=== PATIENT | female | born 1950 | race Caucasian/White ===

== ENCOUNTER 2024-07-30 10:23 | Inpatient (IN) | payer MEDICARE, SELFPAY ==
[2024-07-30] VITALS (21 sets, daily range): BP systolic 88–143; BP diastolic 39–89; PULSE 106–138; RESP 12–24; TEMP 35.8–36.8; O2SAT 91–100; BMI 24.8; BMI 24.5
--- NOTE | 2024-07-30 10:55 | ECG_ITS ---
APPROVED REPORT Exam: Resting ECG HR:125 bpm ECG Measurements Heart Rate 125 AXES MO 138 P 65 QRSd 74 QRS 19 QT 314 T 4 QTc 388 Conclusion SINUS TACHYCARDIA ABNORMAL RHYTHM ECG Electronically signed by : FIORDALIZA GILL, 07/30/2024 16:29:54
[2024-07-30 10:58] LABS: Basophils % 0.4 % (0.1-2.0); Eosinophils % 0.3 % (0.1-12.0); Hematocrit 26.3 % (37.0-47.0); Hemoglobin 8.5 g/dL (12.2-16.2); Lymphocytes # 1.2 K/mm3 (0.7-4.5); Lymphocytes % 12.6 % (10-50); Mean Corpuscular HGB Conc 32.3 g/dL (31.8-35.4); Mean Corpuscular Hemoglobin 33.5 pg (27.0-31.2); Mean Corpuscular Volume 103.5 fl (81-99); Mean Platelet Volume 8.1 fl (7.4-10.4); Monocytes # 0.3 K/mm3 (0.1-1.0); Monocytes % 3.3 % (1.7-9.3); Neutrophils # 8.2 K/mm3 (1.8-7.8); Neutrophils % 83.4 % (37.0-80.0); Platelet Count 379 K/mm3 (142-424); Red Blood Count 2.54 M/mm3 (4.20-5.40); Red Cell Distribution Width 14.6 % (11.5-17.5); White Blood Count 9.8 K/mm3 (4.8-10.8)
[2024-07-30] MEDS: BELLADONNA ALKALOIDS 60 ML ML PO ×2 (10:59→18:05)
[2024-07-30 11:04] LABS: Albumin Level 3.4 g/dl (3.5-5.0); Chloride 109 mmol/L (98-107); Potassium 4.3 mmoL/L (3.5-5.1); Sodium 140 mmol/L (136-145)
[2024-07-30 11:07] LABS: Alanine Aminotransferase 39 U/L (12-78); Albumin/Globulin Ratio 1.3 (1.1-1.8); Alkaline Phosphatase 39 U/L (38-126); Anion Gap 13.3 mEq/L (5-15); Aspartate Amino Transferase 43 U/L (14-36); Bilirubin,Total 0.8 mg/dl (0.2-1.3); Carbon Dioxide 22 mmol/L (22.0-30.0); Globulin 2.6 g/dL (1.3-3.2); Lipase 80 U/L (23-300)
[2024-07-30 11:08] LABS: Calcium 9.7 mg/dl (8.4-10.2); Glucose 163 mg/dl (74-100)
--- NOTE | 2024-07-30 11:08 | PC.NURSE ---
DR GILL AT BEDSIDE
[2024-07-30 11:10] LABS: Ethyl Alcohol < 10 mg/dl (0-10)
[2024-07-30 11:12] LABS: Blood Urea Nitrogen 50 mg/dl (7-17); Creatinine Clearance Estimated 48 mL/min (50-200); Estimated Glomerular Filt Rate 98 ml/min (>60); GFR (African American) 118 ML/MIN (>60)
[2024-07-30 11:12] LABS: Microscopic, Urine URINE MICROSCOPIC (MICROSCOPIC)
[2024-07-30 11:13] LABS: Appearance,Urine CLOUDY (Clear); Bilirubin,Urine Negative (Negative); Blood, Urine Negative (Negative); Color,Urine YELLOW (Yellow); Glucose,Urine (UA) Negative (Negative); Ketones,Urine TRACE (Negative); Leukocyte Esterase,Urine TRACE (Negative); Nitrate,Urine Negative (Negative); Protein,Urine Negative (Negative); Specific Gravity, Urine 1.015 (1.005-1.030); Urobilinogen,Urine 0.2 EU/dl (0.2)
--- NOTE | 2024-07-30 11:19 | CT_ITS ---
PROCEDURE INFORMATION: Exam: CTA Chest With Contrast Exam date and time: 07/30/2024 11:54 AM Age: 74 years old Clinical indication: Pain; Other: Cp; Additional info: Chest pain, tachycardia TECHNIQUE: Imaging protocol: Computed tomographic angiography of the chest with contrast. Exam focused on the arteries. 3D rendering (Not supervised by radiologist): MIP and/or 3D reconstructed images were created by the technologist. Radiation optimization: All CT scans at this facility use at least one of these dose optimization techniques: automated exposure control; mA and/or kV adjustment per patient size (includes targeted exams where dose is matched to clinical indication); or iterative reconstruction. Contrast material: ISOVUE 370; Contrast volume: 70 ml; Contrast route: INTRAVENOUS (IV); COMPARISON: CT ANGIO CHEST PE PROTOCOL 07/30/2024 11:54 AM FINDINGS: Limitations: Motion artifact does moderately limit the sensitivity of this examination. Tubes, catheters and devices: There is an epidural catheter terminating in the lower thoracic canal. Pulmonary arteries: Normal. No pulmonary emboli. Aorta: Unremarkable. No aortic aneurysm. No aortic dissection. Trachea: Main airways are patent. Lungs: There is a right lower lobe pulmonary granuloma. Pleural spaces: No pneumothorax. No pleural effusion. Heart: Calcifications in the mitral annulus noted. Coronary arteries: There is moderate atherosclerotic calcification of the coronary arteries. Lymph nodes: Unremarkable. No enlarged lymph nodes. Diaphragm: Large hiatal hernia noted. Intraperitoneal space: For findings in the abdomen and pelvis, please refer to the separately dictated abdomen and pelvis CT report under a separate accession number. Bones/joints: Unremarkable. No acute fracture. Soft tissues: There is nonspecific subcutaneous air in the right supraclavicular fossa. IMPRESSION: 1. There is nonspecific subcutaneous air in the right supraclavicular fossa. 2. No aortic dissection or aneurysm. Major aortic branches are patent. 3. No pulmonary embolus 4. Centrilobular emphysema. COMMENTS: The presence of pulmonary emphysema on CT is an independent risk factor for lung cancer. In the absence of a history or active diagnosis of lung cancer, it is recommended that this patient with emphysema be evaluated for enrollment in a low dose CT lung cancer screening program.
--- NOTE | 2024-07-30 11:19 | CT_ITS ---
PROCEDURE INFORMATION: Exam: CTA Abdomen and Pelvis With Contrast Exam date and time: 07/30/2024 11:54 AM Age: 74 years old Clinical indication: Abdominal pain; Generalized; Additional info: Gi bleed - abd pain/n/v, coffee ground emesis TECHNIQUE: Imaging protocol: Computed tomographic angiography of the abdomen and pelvis with contrast. Exam focused on the arteries. 3D rendering (Not supervised by radiologist): MIP and/or 3D reconstructed images were created by the technologist. Radiation optimization: All CT scans at this facility use at least one of these dose optimization techniques: automated exposure control; mA and/or kV adjustment per patient size (includes targeted exams where dose is matched to clinical indication); or iterative reconstruction. Contrast material: ISOVUE; Contrast volume: 70 ml; Contrast route: INTRAVENOUS (IV); COMPARISON: CT ANGIO CHEST PE PROTOCOL 07/30/2024 11:54 AM FINDINGS: Esophagus: Circumferential thickening and distension of the distal esophagus can be seen in the context of esophageal dysmotility. Diaphragm: There is a large hiatal hernia. There is mucosal hyperenhancement along the gastric folds. Findings can be attributed to gastritis in the appropriate clinical context. Aorta: No aortic aneurysm. No aortic dissection. Celiac trunk and mesenteric arteries: No occlusion or significant stenosis. Renal arteries: No occlusion or significant stenosis. Right iliac arteries: No occlusion or significant stenosis. Left iliac arteries: No occlusion or significant stenosis. Liver: No focal hepatic lesions. Gallbladder and biliary ducts: Gallbladder is distended without radiopaque cholelithiasis. No biliary ductal dilation. Pancreas: No peripancreatic fluid stranding. No main pancreatic ductal dilation. Spleen: No splenomegaly. Adrenal glands: The adrenal glands are normal. Kidneys and ureters: Nephrograms are symmetric. No nephrolithiasis or hydroureteronephrosis on either side. No solid lesions Stomach and bowel: Scattered colonic diverticula without acute inflammatory change. There is a focal lipoma in the splenic flexure of the colon. There is an indeterminate hyperenhancing focus along the greater curvature of the stomach, proximal to the pyloric region (series 3, image 170). Appendix: No evidence of appendicitis. Intraperitoneal space: There is no evidence of free intraperitoneal or pelvic fluid. Lymph nodes: No lymphadenopathy. Urinary bladder: Urinary bladder is unremarkable. Reproductive: Unremarkable as visualized. Bones/joints: No acute fracture. Soft tissues: Unremarkable. IMPRESSION: 1. There is an indeterminate hyperenhancing focus along the greater curvature of the stomach, proximal to the pyloric region (series 3, image 170). Findings can represent ingested material versus hemorrhagic source. 2. Circumferential thickening and distension of the distal esophagus can be seen in the context of esophageal dysmotility/esophagitis. 3. There is a large hiatal hernia. There is mucosal hyperenhancement along the gastric folds. Findings can be attributed to gastritis in the appropriate clinical context.
[2024-07-30 11:22] LABS: Bacteria,Urine 4+ /lpf; Squamous Epithelial Cell,Urine Occasional #/hpf (0-5); WBC,Urine Occasional #/hpf (0-3); Yeast,Urine Occasional /lpf
--- NOTE | 2024-07-30 11:27 | PC.NURSE ---
Called [facility] ([place]) requesting records of the patients visit from last week per Dr. Collins. [facility] said they would fax over the records.
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
[2024-07-30 11:46] LABS: Troponin I < 0.01 ng/ml (0.00-0.034)
[2024-07-30 11:54] LABS: Activated Partial Thrombo Time 22.5 seconds (22.8-30.6); INR 1.03 (0.9-1.1); Prothrombin Time 11.5 seconds (10.1-12.5)
[2024-07-30] MEDS: SODIUM CHLORIDE 0.9% 10ML SYR (RAD ONLY) 10 ML IV (12:02)
[2024-07-30] MEDS: IOPAMIDOL-370 (76%);100ML BOTTLE 70 ML IV (12:02)
[2024-07-30] MEDS: 0.9 % SODIUM CHLORIDE 50 ML VIAL IV (12:02)
[2024-07-30] MEDS: PANTOPRAZOLE SODIUM 80 MG in 0.9 % SODIUM CHLORIDE 100 ML 100 MG IV (12:19)
[2024-07-30] MEDS: ONDANSETRON 4MG/2ML VIAL 4 MG IV (12:19)
[2024-07-30] MEDS: LACTATED RINGERS 1000ML 1,000 ML 999 ML IV (12:20)
[2024-07-30] MEDS: ACETAMINOPHEN 1,000MG/100ML VIAL 1000 MG IV (12:20)
--- NOTE | 2024-07-30 12:42 | PC.NURSE ---
speaking with GI
--- NOTE | 2024-07-30 12:49 | PC.NURSE ---
DR GILL SPEAKING WITH DR FRANCISCO
[2024-07-30 12:57] LABS: Occult Blood,Stool Positive (Negative)
--- NOTE | 2024-07-30 13:18 | PC.NURSE ---
TELETYPE TECHNICIAN NOTIFIED OF ADMISSION
--- NOTE | 2024-07-30 13:43 | PC.NURSE ---
called report to tierney graham and answered all questions
[2024-07-30 14:36] LABS: HIV (1&2) Antibody Rapid NONREACTIVE (NONREACTIVE)
[2024-07-30 14:54] LABS: Reflex Lactic Add Lactic Reflex
[2024-07-30 15:29] LABS: Troponin I < 0.01 ng/ml (0.00-0.034)
[2024-07-30 15:36] LABS: Hematocrit 22.8 % (37.0-47.0)
[2024-07-30 15:38] LABS: Hemoglobin 7.3 g/dL (12.2-16.2)
[2024-07-30 15:55] LABS: Lactic Acid Follow Up (RFLX 1) 3.8 mmol/L (0.7-2.1)
--- NOTE | 2024-07-30 16:09 | PC.NURSE ---
Addendum entered by Mamta Rivera RN 07/30/24 20:03: pt continued to become more agitated, less oriented, moved to room 217 per MD order, report given to Pearl JONES. Original Note: patient stated she needed to have a BM so i was assisting her to the bathroom, patient was standing up and started to have unsteady gait, i assisted the patient back to sit on the side of the bed, she then laid down sideways on the bed, i hit the call light for assistance because the patient was not responsive to her name and began pursed lip breathing. MD at bedside. 500 ml LR bolus administered per MD. glucose level was 167. STAT H+H ordered. BP 82/55, NH 140, o2 sat 95, RR 24. patient is now lying in bed, she is alert and oriented x4, call light within reach.
--- NOTE | 2024-07-30 16:12 | EXP.HP ---
History of Present Illness *Admission Date: 07/30/24 *Reason for visit:: GI bleed *History of present illness: Cielo Quarles is a 74-year-old female with a medical history significant for alcohol use disorder, GI bleed who presented with worsening abdominal pain, nausea, and dark emesis. Upon my arrival to interview the patient, patient was having significant abdominal pain and unable to perform an appropriate injury. Per my signout from ED attending and chart review, patient had been binge drinking fireball shots over the past couple days. She was recently admitted to [facility] and an EGD apparently showed stomach ulcers per patient, but she does not know if it revealed esophageal varices. Patient has no known history of cirrhosis, but but does have a longstanding history of alcohol use disorder. Workup in the ED was remarkable for hemoglobin 8.5, BUN 50, relatively normal LFTs, and positive stool occult for blood. CT abdomen/pelvis revealed an indeterminate hyperenhancing focus along the greater curvature of the stomach which may represent ingested material versus hemorrhagic source. Vitals were stable prior to admission, with patient no longer having nausea/vomiting or hematemesis/melena. As such, case discussed with ED provider and decision was made to admit patient for GI bleed. [facility] Disclaimer: The information contained in this section may have been updated after the patient was seen, as this information can be updated by other users. Social History (Updated 07/30/24 @ 16:03 by Deloris Collins DO) Smoking Status: Current every day smoker alcohol intake: current current occupational status: retired Travel in the last 8 weeks: None Other Medical History Have you received the Flu Vaccine for this season: No Have you received the Pneumonia Vaccine: No Meds Home Medications and Allergies New Prescriptions to Start Prescriptions: Allergies Allergy/AdvReac Type Severity Reaction Status Date / Time diphenhydramine Allergy Mild Agitated Verified 07/30/24 10:49 [From BENADRYL] valacyclovir [From Valtrex] Allergy Rash Verified 07/30/24 10:49 Exam Data for Last 24 hours Vital signs and Labs for Last 24 Hours: Temp Pulse Resp BP Pulse Ox O2 Del Method 98.3 F 112 H 22 129/60 98 Room Air 07/30/24 14:00 07/30/24 14:00 07/30/24 14:00 07/30/24 14:00 07/30/24 14:00 07/30/24 14:00 Laboratory Results - last 24 hr 07/30/24 10:47: WBC 9.8, RBC 2.54 L, Hgb 8.5 L, Hct 26.3 L, MCV 103.5 H, MCH 33.5 H, MCHC 32.3, RDW 14.6, Plt Count 379, MPV 8.1, Neut % (Auto) 83.4 H, Lymph % (Auto) 12.6, [place] % (Auto) 3.3, Eos % (Auto) 0.3, Baso % (Auto) 0.4, Neut # (Auto) 8.2 H, Lymph # (Auto) 1.2, [place] # (Auto) 0.3, Eos # (Auto) 0.0, Baso # (Auto) 0.0, Sodium 140, Potassium 4.3, Chloride 109 H, Carbon Dioxide 22, Anion Gap 13.3, BUN 50 H, Creatinine 0.60, Estimated Creat Clear 48, Estimated GFR 98, Est GFR ( Amer) 118, Glucose 163 H, Lactate 3.0 H, Calcium 9.7, Total Bilirubin 0.8, AST 43 H, ALT 39, Alkaline Phosphatase 39, Troponin I < 0.01, Total Protein 6.0 L, Albumin 3.4 L, Globulin 2.6, Albumin/Globulin Ratio 1.3, Lipase 80, Plasma/Serum Alcohol < 10, HIV 1&2 Antibody Rapid Nonreactive 07/30/24 10:49: PT 11.5, INR 1.03, APTT 22.5 L 07/30/24 11:06: Urine Color Yellow, Urine Appearance Cloudy, Urine pH 6.0, Ur Specific [place] 1.015, Urine Protein Negative, Urine Glucose (UA) Negative, Urine Ketones Trace, Urine Blood Negative, Urine Nitrate Negative, Urine Bilirubin Negative, Urine Urobilinogen 0.2, Ur Leukocyte Esterase Trace, Urine RBC None, Urine WBC Occasional, Ur Squamous Epith Cells Occasional, Urine Bacteria 4+, Urine Yeast Occasional 07/30/24 11:41: Blood Type B Positive, Antibody Screen Negative 07/30/24 12:40: Stool Occult Blood Positive A 07/30/24 14:15: Hgb 7.3 L D, Hct 22.8 L, Troponin I < 0.01 07/30/24 15:25: Lactate 3.8 H I & O for Last 24 hours: Intake & Output 07/27/24 07/28/24 07/29/24 07/30/24 23:59 23:59 23:59 23:59 Weight 61.008 kg Constitutional Constitutional: no acute distress *Routine HEENT Exam Head: Present normocephalic Eye: Present EOMI and PERRL ENT: Present mucous membranes moist *Routine Neck Exam Neck: Present supple; Absent lymphadenopathy *Routine Respiratory Exam Respiratory: Present CTA bilaterally *Routine Cardiovascular Exam Cardiovascular: Present RRR *Routine Abdominal Exam Abdominal: Present soft, normoactive bowel sounds and tenderness Comments: Generalized abdominal pain without peritoneal signs. *Routine Rectal Exam Rectal:: deferred *Routine Genitalia Exam Genitalia:: deferred *Routine Extremities Exam Extremities: Absent cyanosis, clubbing or edema *Routine Skin Exam Skin: Present warm; Absent rash *Routine Neurological Exam Neurological: Present alert Assessment and Plan *Assessment and plan (1) Acute GI bleeding: Status: Acute Category: Medical Code(s): K92.2 - Gastrointestinal hemorrhage, unspecified (2) Alcohol use disorder: Status: Acute Category: Medical Code(s): F10.90 - Alcohol use, unspecified, uncomplicated Plan Cielo Quarles is a 74-year-old female with a medical history significant for alcohol use disorder, GI bleed who presented with worsening abdominal pain, nausea, and dark emesis. Upon my arrival to interview the patient, patient was having significant abdominal pain and unable to perform an appropriate injury. Per my signout from ED attending and chart review, patient had been binge drinking fireball shots over the past couple days. She was recently admitted to [facility] and an EGD apparently showed stomach ulcers per patient, but she does not know if it revealed esophageal varices. Patient has no known history of cirrhosis, but but does have a longstanding history of alcohol use disorder. Workup in the ED was remarkable for hemoglobin 8.5, BUN 50, relatively normal LFTs, and positive stool occult for blood. CT abdomen/pelvis revealed an indeterminate hyperenhancing focus along the greater curvature of the stomach which may represent ingested material versus hemorrhagic source. Vitals were stable prior to admission, with patient no longer having nausea/vomiting or hematemesis/melena. As such, case discussed with ED provider and decision was made to admit patient for GI bleed. #Upper GI bleed #Lower GI bleed #Peptic ulcer disease ? EGD about a week ago at [facility] revealed PUD, gastritis. Unclear if it showed varices per patient. ? Patient had a dark bowel movement after admission. Repeat hemoglobin 6.3. ? 2 units of PRBCs were ordered. ? About an hour after her bowel movement, patient began complaining of significant abdominal pain. She could not localize it given her distress. Abdominal pain improved with Carafate, GI cocktail. Patient also given Ativan to help with symptoms of alcohol withdrawal. ? However, blood pressures became soft in the 80s over 50s, maps in the low 50s, with HR in the 120s. ? Octreotide ordered. - IV Protonix drip started. ? Patient seems comfortable at this time, not endorsing abdominal pain, resting. ? Our general surgeon on-call recommended transfer to higher level facility for emergent scope given unstable GI bleed. ? [facility] transfer center was called, spoke with Dr. Stevenson. He relayed this information to the office inspector who recommended transfusing blood and following up on vitals. If she continues to be unstable, they recommended transfer to their ICU for an emergent EGD however at this time they do not have beds. ? Recheck H&H 2 hours post transfusion. ? Moved to ICU unit. ? Continues telemetry. #Alcohol use disorder ? Patient reportedly drinks multiple parables a day for the past week at least. ? CIWA protocol. ? Ativan as needed. ? Seizure precautions.
[2024-07-30 16:15] LABS: POC Glucose,Bedside 167 (70-110)
[2024-07-30 16:26] LABS: Hematocrit 20.9 % (37.0-47.0); Hemoglobin 6.3 g/dL (12.2-16.2)
[2024-07-30 17:27] LABS: Reflex Lactic (2 hrs) Add Lactic Reflex
[2024-07-30 17:27] LABS: Hematocrit 22.8 % (37.0-47.0)
[2024-07-30 17:34] LABS: Hemoglobin 7.1 g/dL (12.2-16.2)
[2024-07-30] MEDS: SUCRALFATE 1GM TABLET 1 GM PO (18:02)
[2024-07-30 18:08] LABS: Troponin I 0.01 ng/ml (0.00-0.034)
[2024-07-30] MEDS: PANTOPRAZOLE SODIUM 80 MG in 0.9 % SODIUM CHLORIDE 100 ML 10 MG IV (18:49)
[2024-07-30] MEDS: LORazepam 2MG/ML VIAL 1 MG IV ×2 (18:57→22:32)
--- NOTE | 2024-07-30 19:18 | ECG_ITS ---
APPROVED REPORT Exam: Resting ECG HR:134 bpm ECG Measurements Heart Rate 134 AXES NE 121 P -5 QRSd 69 QRS 36 QT 313 T 53 QTc 392 Conclusion SINUS TACHYCARDIA WITH FREQUENT ECTOPIC PREMATURE COMPLEXES ABNORMAL RHYTHM ECG INTERPRETATION BASED ON A DEFAULT AGE OF 40 YEARS UNCONFIRMED REPORT Electronically signed by : Charles Andrews MD 08/04/2024 09:17:27
[2024-07-30 19:23] LABS: Lactic Acid Follow up (RFLX 2) 3.7 mmol/L (0.7-2.1)
[2024-07-30 19:36] LABS: Hemoglobin 8.7 g/dL (12.2-16.2)
[2024-07-30] MEDS: OCTREOTIDE ACETATE 500 MCG in 0.9 % SODIUM CHLORIDE 250 ML 25.5 MCG IV (19:45)
[2024-07-30 19:59] LABS: Troponin I 0.02 ng/ml (0.00-0.034)
--- NOTE | 2024-07-30 20:13 | XR_ITS ---
PROCEDURE INFORMATION: Exam: XR Chest Exam date and time: 07/30/2024 8:21 PM Age: 74 years old Clinical indication: Dyspnea TECHNIQUE: Imaging protocol: Radiologic exam of the chest. Views: 1 view. COMPARISON: CT ANGIO CHEST PE PROTOCOL 07/30/2024 11:54 AM FINDINGS: Lungs: Unremarkable. No consolidation. Pleural spaces: Unremarkable. No pleural effusion. No pneumothorax. Heart/Mediastinum: Large hiatal hernia. Bones/joints: Unremarkable. IMPRESSION: No acute findings.
[2024-07-30 20:17] LABS: Albumin Level 2.7 g/dl (3.5-5.0); Chloride 113 mmol/L (98-107); Potassium 4.3 mmoL/L (3.5-5.1); Sodium 139 mmol/L (136-145)
[2024-07-30 20:19] LABS: Blood Urea Nitrogen 61 mg/dl (7-17); Creatinine Clearance Estimated 48 mL/min (50-200); Estimated Glomerular Filt Rate 82 ml/min (>60); GFR (African American) 99 ML/MIN (>60)
[2024-07-30 20:20] LABS: Alanine Aminotransferase 27 U/L (12-78); Albumin/Globulin Ratio 1.2 (1.1-1.8); Alkaline Phosphatase 49 U/L (38-126); Anion Gap 15.3 mEq/L (5-15); Aspartate Amino Transferase 54 U/L (14-36); Bilirubin,Total 0.8 mg/dl (0.2-1.3); Calcium 9.1 mg/dl (8.4-10.2); Carbon Dioxide 15 mmol/L (22.0-30.0); Globulin 2.3 g/dL (1.3-3.2); Glucose 119 mg/dl (74-100)
--- NOTE | 2024-07-30 20:20 | P.EN_ITS ---
Patient had an episode at shift change where she became more dyspneic and was hypotensive. Received 2 units packed red blood cells. Initiated on breathing treatments because of wheezing. Concern for withdrawal versus worsening shock from hypovolemia with GI bleed versus transfusion reaction versus stroke. Patient stabilized with treatment for withdrawal. Was administered 130 mg ph enobarbital x 1. Also received Ativan for CIWA score of 8. Symptoms showed improvement. Received breathing treatment with ipratropium/lev albuterol and budesonide. Repeat labs showed improvement in her H&H, hemoglobin 8.7. Finished second unit packed red blood cells. Symptoms have shown some defervescent's over the first few hours of the night. Has necessitated close monitoring for hemodynamic instability and risk for decompensation. Adjustments made to IV fluids, have discontinued fluids due to normotensive state and significant fluid resuscitation. Patient has subsequently had an additional black bowel movement. Sent for CT of head which showed no acute intracranial pathology or stroke. Continuing to monitor for withdrawal overnight. Obtained records from [place] where she was just seen less than 2 weeks ago for similar presentation and EGD performed. At this time patient's blood pressure is 125/68, heart rate 122, respiratory rate 24. Satting 100% on 4 L oxygen. Appears to be protecting her airway at this time. Will open eyes spontaneously and to voice. Localizes to pain. Answers yes and no but does not consistently follow commands. GCS of 13 (E4 V4 M5) Review of records from his [place] from her visit to [place] [facility] on 07/17. Concern for GI bleed at that time. Appears that she may have been intubated based on medication record with meds for RSI, though notes do not report her being on a vent. Also appears patient has history of not only alcoholism but hypothyroid, NSAID usage, on Celebrex and medications for mood disorder including Vraylar, gabapentin, doxepin possible chronic hepatitis C HCV quant detected in 2021. EGD from 4 shows benign gastric mucosa with edema and congested venules suggestive of portal hypertensive gastropathy. Negative for H. pylori. Mild localized erythematous mucosa with erosion in the antrum. No bleeding identified. Cold forcep biopsy obtained to rule out H. pylori. 9 cm hiatal hernia. Moderate erythematous mucosa with erosion in the duodenal bulb Will obtain right upper quadrant ultrasound to evaluate for cirrhosis and portal hypertension. ICU/Critical care attestation This patient is critically ill with 60 minutes devoted solely to this patient managing life/organ supporting interventions that required physician assessment. This includes but is not limited to time spent making adjustments in respiratory support/ventilator settings, IV fluid administration, titration of pressors, adjustments of medications, discussion of patient with consultants and other care providers as well as updating patient and/or family (if patient by virtue of his/her condition is unable to participate in decision making). This does not include time spent performing separately billed procedures. Time is not concurrent with that of other providers.
[2024-07-30] MEDS: LACTATED RINGERS 1000ML 1,000 ML 333 ML IV (20:32)
[2024-07-30] MEDS: PHENobarbital SOD 65MG/ML INJ 130 MG IV (20:47)
--- NOTE | 2024-07-30 22:05 | PC.NURSE ---
Emergent Blood Documentation -Consent is on file, Type and cross was done -per order at bedside from [place] blood to be administered at 500ml an hour Product Unit Number: [id number] Start time: 192907/30/24 stop time: 200607/30/24 Volume infused 250ml Pre vital 1928- 125/68. RR 24, 100% 2L NC, 135 HR, 96.5 temp Start 1929- , RR 24, 100% 2L NC, 137, 97.9 temp 5min 1934- 106/74, 20RR, 100% 2L NC, 134, 97.8 10min 1939- 126/75, 24, 100%, 130, 97,6 15min 1944- 132/77, 24, 100, 131. 97.9 30mn 1999- 135/70, 24, 100, 121, 97.8 Complete 2006- 127/73, 24,100,126, 97.6 1hr post 2106- 128/69, 24, 100, 108, 99.6
[2024-07-30] MEDS: IPRATROPIUM BROMIDE 0.5 MG/2.5ML SOLUTION IH (22:24)
[2024-07-30] MEDS: BUDESONIDE 0.5MG/2ML NEB 0.5 MG IH (22:24)
[2024-07-30] MEDS: LEVALBUTEROL 1.25MG/3ML NEB 1.25 MG IH (22:24)
--- NOTE | 2024-07-30 22:32 | CT_ITS ---
PROCEDURE INFORMATION: Exam: CT Head Without Contrast Exam date and time: 07/30/2024 10:50 PM Age: 74 years old Clinical indication: Altered mental status/memory loss; Additional info: Altered mental status, not following commands TECHNIQUE: Imaging protocol: Computed tomography of the head without contrast. Radiation optimization: All CT scans at this facility use at least one of these dose optimization techniques: automated exposure control; mA and/or kV adjustment per patient size (includes targeted exams where dose is matched to clinical indication); or iterative reconstruction. COMPARISON: No relevant prior studies available. FINDINGS: Brain: No evidence for intracranial hemorrhage, mass lesions or acute stroke. Intracranial vascular calcifications. Mild small vessel ischemic change in the periventricular white matter. Cerebral ventricles: No ventriculomegaly. Pituitary gland and sella: Negative Paranasal sinuses: Visualized sinuses are unremarkable. No fluid levels. Mastoid air cells: Visualized mastoid air cells are well aerated. Orbital cavities: Negative. Parotid and submandibular glands: Negative Bones: Unremarkable. No acute fracture. Soft tissues: Unremarkable. Vasculature: Negative. Other findings: Extensive motion artifact degrades the images. The; Mild generalized atrophy. IMPRESSION: 1. No evidence for intracranial hemorrhage, mass lesions or acute stroke within the limitations of a motion degraded study. 2. Intracranial vascular calcifications. 3. Mild generalized atrophy. 4. Mild small vessel ischemic change in the periventricular white matter.
[2024-07-31] VITALS (32 sets, daily range): BP systolic 91–127; BP diastolic 40–68; PULSE 98–120; RESP 16–26; TEMP 36.7–37.9; O2SAT 90–100; BMI 25.8
--- NOTE | 2024-07-31 00:09 | US_ITS ---
FINAL REPORT CLINICAL HISTORY: eval for cirrhosis FINDINGS: Sonographic images of the right upper quadrant were obtained. The pancreas is partially obscured. There is coarsening of the hepatic echotexture consistent with cirrhosis. The gallbladder appears normal without evidence of gallstones.There is no evidence of biliary ductal dilatation.The common duct measures 2mm. Limited images of the right kidney are unremarkable. IMPRESSION: Findings consistent with cirrhosis. Reviewed, Interpreted and Dictated by Grant Mcguire III, MD Transcribed by [place]ana To Authenticated and . [facility]
[2024-07-31] MEDS: LEVOTHYROXINE SODIUM 100 MCG VIAL IV (01:05)
[2024-07-31] MEDS: PHENobarbital SOD 65MG/ML INJ 130 MG IV (02:37)
[2024-07-31] MEDS: OCTREOTIDE ACETATE 500 MCG in 0.9 % SODIUM CHLORIDE 250 ML 25.5 MCG IV (04:32)
--- NOTE | 2024-07-31 04:49 | PC.NURSE ---
At the beginning of the shift the patient was very unstable. A rapid response was called very early in my shift. See rapid response documentation and provider event note for details. Patient has since been able to rest. Highest CIWAS was a 9 and given medication for that. Her biggest symptoms were tremors, sweating, and orientation. After medication patient was able to rest and did not tremor while asleep. Patient can state her name when promoted too and some times does need encouragement. Other than her name though patient does struggle to speak. She can answer yes and no but finding words for much else is difficult. She is incontinent of bowel and bladder and has had 1 BM since administering the blood. The daughter did call to check in on her last night and stated she may be by today possibly. Daughter was updated on the condition of her mother and all questions were answered.
[2024-07-31] MEDS: BUDESONIDE 0.5MG/2ML NEB 0.5 MG IH ×2 (06:07→18:21)
[2024-07-31] MEDS: IPRATROPIUM BROMIDE 0.5 MG/2.5ML SOLUTION IH ×5 (06:07→22:49)
[2024-07-31] MEDS: LEVALBUTEROL 1.25MG/3ML NEB 1.25 MG IH ×5 (06:07→22:49)
[2024-07-31 06:55] LABS: Basophils # 0.1 K/mm3 (0-0.2); Basophils % 0.5 % (0.1-2.0); Eosinophils % 0.2 % (0.1-12.0); Hematocrit 29.2 % (37.0-47.0); Lymphocytes # 3.3 K/mm3 (0.7-4.5); Lymphocytes % 30.3 % (10-50); Mean Corpuscular HGB Conc 34.2 g/dL (31.8-35.4); Mean Corpuscular Hemoglobin 31.3 pg (27.0-31.2); Mean Corpuscular Volume 91.4 fl (81-99); Mean Platelet Volume 8.9 fl (7.4-10.4); Monocytes # 0.7 K/mm3 (0.1-1.0); Monocytes % 6.8 % (1.7-9.3); Neutrophils # 6.8 K/mm3 (1.8-7.8); Neutrophils % 62.3 % (37.0-80.0); Platelet Count 260 K/mm3 (142-424); Red Blood Count 3.19 M/mm3 (4.20-5.40); Red Cell Distribution Width 18.2 % (11.5-17.5)
[2024-07-31 07:32] LABS: Albumin Level 2.6 g/dl (3.5-5.0); Chloride 113 mmol/L (98-107); Potassium 3.4 mmoL/L (3.5-5.1); Sodium 139 mmol/L (136-145)
[2024-07-31 07:34] LABS: Blood Urea Nitrogen 55 mg/dl (7-17); Creatinine Clearance Estimated 50 mL/min (50-200); Estimated Glomerular Filt Rate 54 ml/min (>60); GFR (African American) 66 ML/MIN (>60)
[2024-07-31 07:35] LABS: Alanine Aminotransferase 24 U/L (12-78); Albumin/Globulin Ratio 1.1 (1.1-1.8); Alkaline Phosphatase 38 U/L (38-126); Anion Gap 9.4 mEq/L (5-15); Aspartate Amino Transferase 38 U/L (14-36); Bilirubin,Total 0.5 mg/dl (0.2-1.3); Calcium 8.4 mg/dl (8.4-10.2); Carbon Dioxide 20 mmol/L (22.0-30.0); Globulin 2.4 g/dL (1.3-3.2); Glucose 120 mg/dl (74-100)
--- NOTE | 2024-07-31 08:01 | EXP.ANES.CKL ---
[facility] Disclaimer: The information contained in this section may have been updated after the patient was seen, as this information can be updated by other users. Social History (Updated 07/30/24 @ 19:54 by Mamta Rivera RN) Smoking Status: Current every day smoker alcohol intake: current substance use type: denies use current occupational status: retired Travel in the last 8 weeks: None [facility] Anesthesia Checklist Patient Identification Patient Identification: Arm Band Structural Data Admitted From: Inpatient Planned Operative Procedure/s: EGD Consent for Planned Operative Procedure(s) Verified: Yes Verified Documents: Surgical Consent and History and Physical NPO Status Verified Time NPO: 00:00 Additional verifications Anesthesia Reactions: No Airway Assessment Mallampati Score:: Class II C-Spine Mobility Assessed: Yes TMJ Mobility Assessed: Yes Dentition: Poor Dentition Neurological Assessment Level of Consciousness: Awake and Inappropriate Anesthesia Plan Anesthesia Risk discussed: No Anesthesia Plan: Not verified due to Patient Condition ASA Class: III (E) Anesthesia Type: MAC Preoperative Comments Pre-Operative Comments: Pt not alert and oriented. Hx obtained from chart
--- NOTE | 2024-07-31 08:10 | EXP.HP ---
History of Present Illness *Admission Date: 07/30/24 *Reason for visit:: Acute GI bleed *History of present illness: Cielo Quarles is a 74-year-old female with a medical history significant for alcohol use disorder, GI bleed who presented with worsening abdominal pain, nausea, and dark emesis. Upon my arrival to interview the patient, patient was having significant abdominal pain and unable to perform an appropriate injury. Per my signout from ED attending and chart review, patient had been binge drinking fireball shots over the past couple days. She was recently admitted to [facility] and an EGD apparently showed stomach ulcers per patient, but she does not know if it revealed esophageal varices. Patient has no known history of cirrhosis, but but does have a longstanding history of alcohol use disorder. Workup in the ED was remarkable for hemoglobin 8.5, BUN 50, relatively normal LFTs, and positive stool occult for blood. CT abdomen/pelvis revealed an indeterminate hyperenhancing focus along the greater curvature of the stomach which may represent ingested material versus hemorrhagic source. Vitals were stable prior to admission, with patient no longer having nausea/vomiting or hematemesis/melena. As such, case discussed with ED provider and decision was made to admit patient for GI bleed. [facility] Disclaimer: The information contained in this section may have been updated after the patient was seen, as this information can be updated by other users. Social History (Updated 07/31/24 @ 08:06 by Juan Spain CRNA) Smoking Status: Current every day smoker alcohol intake: current substance use type: denies use current occupational status: retired Travel in the last 8 weeks: None Other Medical History Have you received the Flu Vaccine for this season: No Have you received the Pneumonia Vaccine: No Review of Systems Review of Systems Review of systems (narrative): Negative *Cardiovascular Comments: Negative *Gastrointestinal Comments: Negative *Genitourinary Comments: Negative *Musculoskeletal Comments: Negative *Neurologic Comments: Negative Meds Home Medications and Allergies New Prescriptions to Start Prescriptions: Allergies Allergy/AdvReac Type Severity Reaction Status Date / Time diphenhydramine Allergy Mild Agitated Verified 07/30/24 10:49 [From BENADRYL] valacyclovir [From Valtrex] Allergy Rash Verified 07/30/24 10:49 Exam Data for Last 24 hours Vital signs and Labs for Last 24 Hours: Temp Pulse Resp BP Pulse Ox O2 Del Method O2 Flow Rate 99.1 F 117 H 24 104/54 L 99 Nasal Cannula 2 07/31/24 04:00 07/31/24 07:00 07/31/24 07:00 07/31/24 07:00 07/31/24 07:00 07/31/24 07:00 07/31/24 07:00 Laboratory Results - last 24 hr 07/30/24 10:47: WBC 9.8, RBC 2.54 L, Hgb 8.5 L, Hct 26.3 L, MCV 103.5 H, MCH 33.5 H, MCHC 32.3, RDW 14.6, Plt Count 379, MPV 8.1, Neut % (Auto) 83.4 H, Lymph % (Auto) 12.6, [place] % (Auto) 3.3, Eos % (Auto) 0.3, Baso % (Auto) 0.4, Neut # (Auto) 8.2 H, Lymph # (Auto) 1.2, [place] # (Auto) 0.3, Eos # (Auto) 0.0, Baso # (Auto) 0.0, Sodium 140, Potassium 4.3, Chloride 109 H, Carbon Dioxide 22, Anion Gap 13.3, BUN 50 H, Creatinine 0.60, Estimated Creat Clear 48, Estimated GFR 98, Est GFR ( Amer) 118, Glucose 163 H, Lactate 3.0 H, Calcium 9.7, Total Bilirubin 0.8, AST 43 H, ALT 39, Alkaline Phosphatase 39, Troponin I < 0.01, Total Protein 6.0 L, Albumin 3.4 L, Globulin 2.6, Albumin/Globulin Ratio 1.3, Lipase 80, Plasma/Serum Alcohol < 10, HIV 1&2 Antibody Rapid Nonreactive 07/30/24 10:49: PT 11.5, INR 1.03, APTT 22.5 L 07/30/24 11:06: Urine Color Yellow, Urine Appearance Cloudy, Urine pH 6.0, Ur Specific [place] 1.015, Urine Protein Negative, Urine Glucose (UA) Negative, Urine Ketones Trace, Urine Blood Negative, Urine Nitrate Negative, Urine Bilirubin Negative, Urine Urobilinogen 0.2, Ur Leukocyte Esterase Trace, Urine RBC None, Urine WBC Occasional, Ur Squamous Epith Cells Occasional, Urine Bacteria 4+, Urine Yeast Occasional 07/30/24 11:41: Blood Type B Positive, Antibody Screen Negative, Crossmatch (AHG) See Detail 07/30/24 12:40: Stool Occult Blood Positive A 07/30/24 14:15: Hgb 7.3 L D, Hct 22.8 L, Troponin I < 0.01 07/30/24 14:37: Blood Type Confirm B Positive 07/30/24 15:25: Lactate 3.8 H 07/30/24 15:45: POC Glucose 167 H 07/30/24 16:05: Hgb 6.3 L*, Hct 20.9 L* 07/30/24 17:20: Hgb 7.1 L D, Hct 22.8 L 07/30/24 17:25: Troponin I 0.01 07/30/24 18:15: Lactate 3.7 H 07/30/24 19:30: Hgb 8.7 L D, Hct 27.0 L, Sodium 139, Potassium 4.3, Chloride 113 H, Carbon Dioxide 15 L, Anion Gap 15.3 H, BUN 61 H, Creatinine 0.70, Estimated Creat Clear 48, Estimated GFR 82, Est GFR ( Amer) 99, Glucose 119 H D, Calcium 9.1, Total Bilirubin 0.8, AST 54 H D, ALT 27 D, Alkaline Phosphatase 49, Troponin I 0.02, Total Protein 5.0 L, Albumin 2.7 L D, Globulin 2.3, Albumin/Globulin Ratio 1.2 07/31/24 05:41: WBC 11.0 H, RBC 3.19 L D, Hgb 10.0 L D, Hct 29.2 L, MCV 91.4, MCH 31.3 H, MCHC 34.2, RDW 18.2 H, Plt Count 260 D, MPV 8.9, Neut % (Auto) 62.3, Lymph % (Auto) 30.3, [place] % (Auto) 6.8, Eos % (Auto) 0.2, Baso % (Auto) 0.5, Neut # (Auto) 6.8, Lymph # (Auto) 3.3, [place] # (Auto) 0.7, Eos # (Auto) 0.0, Baso # (Auto) 0.1, Sodium 139, Potassium 3.4 L D, Chloride 113 H, Carbon Dioxide 20 L, Anion Gap 9.4, BUN 55 H, Creatinine 1.00 D, Estimated Creat Clear 50, Estimated GFR 54 L, Est GFR ( Amer) 66 D, Glucose 120 H, Calcium 8.4, Total Bilirubin 0.5, AST 38 H D, ALT 24, Alkaline Phosphatase 38, Total Protein 5.0 L, Albumin 2.6 L, Globulin 2.4, Albumin/Globulin Ratio 1.1 I & O for Last 24 hours: Intake & Output 07/28/24 07/29/24 07/30/24 07/31/24 23:59 23:59 23:59 23:59 Intake Total 430 / 430 286 / 286 Output Total Balance 430 / 429 285 / 285 Weight 134 lb 8 oz 140 lb 4 oz *Routine HEENT Exam Head: Present normocephalic Eye: Present EOMI and PERRL ENT: Present mucous membranes moist *Routine Neck Exam Neck: Present supple *Routine Respiratory Exam Respiratory: Present CTA bilaterally *Routine Cardiovascular Exam Cardiovascular: Present RRR *Routine Abdominal Exam Abdominal: Present soft and normoactive bowel sounds; Absent tenderness *Routine Rectal Exam Rectal:: deferred *Routine Genitalia Exam Genitalia:: deferred *Routine Extremities Exam Extremities: Absent cyanosis, clubbing or edema *Routine Skin Exam Skin: Present warm; Absent rash *Routine Neurological Exam Neurological: Present alert and oriented X3 Assessment and Plan *Assessment and plan (1) Acute GI bleeding: Status: Acute Category: Medical Code(s): K92.2 - Gastrointestinal hemorrhage, unspecified Plan A/P: 1. Melena/acute GI bleed is the preprocedural diagnosis. The patient will be anesthetized/sedated using MAC sedation. The patient has been seen and examined. Cardiac and lung assessment prior to the examination is stable. Proceed with planned EGD
--- NOTE | 2024-07-31 08:19 | P.PCN_ITS ---
[facility] Procedure Note Date: 07/31/24 Time: 08:19 Procedure Note:: Upper Endoscopy Procedure Report: Esophagogastroduodenoscopy with cold biopsies and TTS balloon dilation Endoscopost: Soren Luevano II, MD Referring Physician: Aries Pepper MD Date of Procedure: July 31, 2024 Equipment: Olympus GIF 190 standard upper endoscope Sedation: MAC sedation Indications: Mrs. Quarles is a 74-year-old female who presented with hypovolemia and GI bleed. She does have a history of daily alcohol abuse and peptic ulcer disease. The patient had recently been admitted to [facility] last week with concern for bleeding. There was no sign of any esophageal varices. The report states that she has some portal hypertensive gastropathy. She presented with noted melena and tachycardia. Her CAT scan had shown significant gastric wall thickening. Labs were obtained and her hemoglobin was 8.5 down from outside record hemoglobin of 10.1 in June. Her platelet count was 379,000. She was occult blood positive in the stool. She had no hematemesis. Procedure: Prior to the procedure, a history and physical exam was performed, and patient's medications and allergies were reviewed. The risks, benefits and alternatives of the sedation and procedure were discussed with the patient. All questions were answered and informed consent was obtained. The patient was brought to the procedure room. Patient identification and proposed procedure were verified by the physician and the nurse. The patient was placed in a left lateral decubitus position and the scope was passed under direct vision. Throughout the procedure, the patient's blood pressure, pulse, and oxygen saturations were monitored continuously. The upper GI endoscopy was accomplished without difficulty. The patient tolerated the procedure well. Findings: The scope was passed directly into the upper esophagus and advanced to the third portion of the duodenum. The post bulbar duodenum, ampulla and duodenal bulb were normal with normal mucosa and conniventes. The scope was withdrawn through a normal duodenal bulb and pylorus into the stomach. There was some mild reactive gastropathy of the antrum. There was no evidence of portal hypertensive gastropathy. There was no active bleeding identified throughout. Upon retroflexion there was a large 6 to 7 cm hiatal hernia with linear Mike's ulcerations and erosions. There was no evidence of any visible vessel or pigmentation and there was no clot or active bleeding. Biopsies were taken from the antrum and body of the stomach. There were no gastric varices. The scope was then withdrawn into the esophagus. There was evidence of a distal esophageal ring that was gently dilated up to 18 mm with a TTS hydrostatic balloon. There were no esophageal varices, reflux esophagitis or Crocker's. There was some presbyesophagus/esophageal dysmotility. The remainder of the esophageal mucosa was normal. Impression: 1. Moderate to large hiatal hernia (6 to 7 cm) with linear Mike's ulcerations (without stigmata of recent bleeding) 2. Distal esophageal ring status post dilation to 18 mm 3. Moderate to marked esophageal dysmotility 4. Mild antral reactive gastropathy Plan: The patient does not have any portal hypertensive gastropathy and no evidence of portal hypertension. She has normal platelets and there is no concern for any varices at this point. The patient did have larger linear Mike's ulceration/erosions which is probably the etiology of the blood loss. The patient has not shown any marked signs of acute GI bleeding. I would recommend continued PPI therapy. I am not convinced that her overall clinical picture is related to any acute ongoing bleed. I would continue to monitor her Address hypovolemia hypovolemia and mental status.
--- NOTE | 2024-07-31 08:38 | PC.NURSE ---
Patients daughter, Deloris Woodward--phone number [phone]
--- NOTE | 2024-07-31 08:46 | PC.NURSE ---
0830: Report given to Maria Del Rosario Martin RN. Pt is at baseline and will be transported back to room 217 per this RN and Daya Pena RN.
[2024-07-31] MEDS: PANTOPRAZOLE 40MG VIAL 40 MG IV ×2 (09:47→20:44)
[2024-07-31] MEDS: SODIUM CHLORIDE 0.9% 10ML VIAL 10 ML IV (09:47)
[2024-07-31] MEDS: CEFTRIAXONE 1 GM 1 GM in 0.9 % SODIUM CHLORIDE 50 ML IV (12:38)
--- NOTE | 2024-07-31 13:43 | HMH.PTEV ---
Physical Therapy Evaluation Rehab PT IP Evaluation Start: 07/31/24 11:32 Freq: ONCE Status: Active Protocol: Document 07/31/24 13:35 AGUILAR (Rec: 07/31/24 13:43 AGUILAR [id number]) Subjective/History History History Per H&P: Cielo Quarles is a 74 -year-old female with a medical history significant for alcohol use disorder, GI bleed who presented with worsening abdominal pain, nausea, and dark emesis. Upon my arrival to interview the patient, patient was having significant abdominal pain and unable to perform an appropriate injury. Per my signout from ED attending and chart review, patient had been binge drinking fireball shots over the past couple days. She was recently admitted to [facility] and an EGD apparently showed stomach ulcers per patient, but she does not know if it revealed esophageal varices. Patient has no known history of cirrhosis, but but does have a longstanding history of alcohol use disorder. Workup in the ED was remarkable for hemoglobin 8.5, BUN 50, relatively normal LFTs, and positive stool occult for blood. CT abdomen/pelvis revealed an indeterminate hyperenhancing focus along the greater curvature of the stomach which may represent ingested material versus hemorrhagic source. Vitals were stable prior to admission , with patient no longer having nausea/vomiting or hematemesis/melena. As such, case discussed with ED provider and decision was made to admit patient for GI bleed . Subjective Subjective Pt oriented to self, b-day, and place. Pt not oriented to situation. Pt reports she was IND with all mobility and lived alone in a single-story home with 0 BASHIR. Pt did not use a RW or cane. Pt was still driving. New diagnosis of cancer in past 12 No months? Rehab PT IP Eval Objective Appearance Patient Behavior Cooperative Patient Orientation Person,Place,Birthday Difficulty following instructions mild Speech Pattern Clear Ambulation Patient Able to Ambulate No Balance Ability to Arise Able, uses arms to help Sitting Balance Steady, safe Standing Balance Unsteady Dynamic Sitting Balance Ability Fair Dynamic Standing Balance Ability Poor Transfers Bed Transfer Ability Moderate x 1 (50% assist) Sit to Stand Bed Transfer Ability Minimal x 2 (25% assist) Rehab PT IP prob,goals,plan Problems Date of Evaluation: 07/31/24 PT IP Problems Bed Mobility,Transfers,Gait, Balance,Safety Rehab Potential Rehab Potential Good Equipment Needs Assistive Devices Rolling / Wheeled Walker Plan PT Intervention Plan Bed Mobility,Transfers,Gait, Balance,Safety,Therapeutic Exercise Other Intervention Plan 1-2 times PT Plan Frequency Daily Duration LOS Discharge Goals Bed Transfer Ability Supervision/Stand by Sit to Stand Chair Transfer Ability Minimal x 1 (25% assist) Discharge Plan PT Discharge Plan Initial physical therapy evaluation performed. Patient presents below baseline at this time in functional mobility, transfers, and strength. Pt not safe to return home at this time d/t current level of functional mobility. PT recommending short-term rehabilitation stay upon d/c from [facility]. Pt would benefit from skilled PT while at [facility] to prevent further functional decline and maximize safety with mobility. Eval Complexity Eval Charge Codes 93010 - High Complexity PHYSICIAN CERTIFICATION: I certify the specified therapy services for Cielo Quarles are required, authorized, and reviewed every 30 days.
--- NOTE | 2024-07-31 13:48 | HMH.OTEV ---
OT Inpatient Evaluation Rehab OT IP Evaluation Start: 07/31/24 11:32 Freq: ONCE Status: Active Protocol: Document 07/31/24 13:37 [facility] (Rec: 07/31/24 13:48 [facility] [id number]) Rehab OT IP Assessment Subjective History Pt oriented x2 on arrival. Pt agreeable to engage in initial evaluation. Pt admitted to [facility] on 07/30/24 due to acute GI bleed. Pt history and physical report : Cielo Quarles is a 74-year-old female with a medical history significant for alcohol use disorder, GI bleed who presented with worsening abdominal pain, nausea, and dark emesis. Upon my arrival to interview the patient, patient was having significant abdominal pain and unable to perform an appropriate injury. Per my signout from ED attending and chart review, patient had been binge drinking fireball shots over the past couple days. She was recently admitted to [facility] and an EGD apparently showed stomach ulcers per patient, but she does not know if it revealed esophageal varices. Patient has no known history of cirrhosis, but but does have a longstanding history of alcohol use disorder. Workup in the ED was remarkable for hemoglobin 8.5, BUN 50, relatively normal LFTs, and positive stool occult for blood. CT abdomen/pelvis revealed an indeterminate hyperenhancing focus along the greater curvature of the stomach which may represent ingested material versus hemorrhagic source. Vitals were stable prior to admission , with patient no longer having nausea/vomiting or hematemesis/melena. As such, case discussed with ED provider and decision was made to admit patient for GI bleed . Subjective Information provided by pt may not be accurate due to pt being a poor historian. Prior to admission to hospital, pt reports living in her one- story home alone. Pt reports that her daughter lives nearby . Pt reports being independent with all ADLs and IADLs. Pt also engaged in driving. Pt reports not using any assistive devices at home for functional transfers. Objective Patient Orientation Name,Birthday Right Upper Extremity Gross ROM WFL Left Upper Extremity Gross ROM WFL Bed Mobility bed mobility-scooting,bed mobility - supine/sit Assist Level Moderate x 2 (50% assist) Transfer Training Sit/Stand Transfer Assist Level Minimal x 2 (25% assist) Performing Toilet Hygiene Ability Unable/dependent Decrease in Endurance Yes Rehab OT IP prob,goals,plan Problems Date of Evaluation: 07/31/24 OT IP Problems Bed Mobility,Transfers,Balance ,Self care,Safety Rehab Potential Rehab Potential Good Equipment Needs Assistive Devices Rolling / Wheeled Walker Plan OT intervention Plan Bed Mobility,Transfers,Balance ,Self care,Safety,Therapeutic Exercise OT Plan Frequency Daily Duration LOS Discharge Goals Bed Mobility Ability Assistance x1 Sit to Stand Chair Transfer Ability Minimal x 1 (25% assist) Chair Transfer Ability Minimal x 1 (25% assist) Chair Transfer Technique Sit to/from Ambulatory Chair Transfer Assistive Devices Rolling Walker Feeding Ability Assist with Tray Set Up Lower Body Dressing Ability Moderate Assistance Upper Body Dressing Ability Minimal Assistance Bathing Ability Moderate Assistance Performing Toilet Hygiene Ability Moderate Assistance Overall Commode/Toilet Transfer Ability Minimal Assistance Commode/Toilet Transfer Technique Sit to/from Ambulatory Commode/Toilet Transfer Assistive Grab Bars Devices Oral Care Assist Contact Guard Decrease in Endurance No Discharge Plan OT Discharge Plan Pt will continue to be seen for skilled OT services while at [facility]. Pt is recommended for placement at a short-term rehab facility to address functional decline. Pt is also recommended for a walker to provide support and increase safety with functional transfers. Continued skilled therapy is important to improve balance, endurance, safety, ADL independence, and functional transfers to reach PLOF. Eval Complexity Eval Charge Codes 04515 - Moderate Complexity PHYSICIAN CERTIFICATION: I certify the specified therapy services for Cielo Quarles are required, authorized, and reviewed every 30 days.
--- NOTE | 2024-07-31 14:31 | PC.NURSE ---
pt assisted to restroom with x1 assistance. pt tolerated well. sats dropped to 85 after ambulation. pt placed on 2L NC with sats recovering to <95%.
--- NOTE | 2024-07-31 14:41 | HMH.PHAINT1 ---
Pharmacy Intervention Comments: Home medication list verified using list from pharmacy.
--- NOTE | 2024-07-31 14:50 | PC.NURSE ---
due to pt condition improvement, Dr. Haro advised for CIWA to be done q2
[2024-07-31] MEDS: MULTIVITAMIN TABLET 1 EACH PO (16:01)
[2024-07-31] MEDS: SUCRALFATE 1GM TABLET 1 GM PO ×2 (16:01→20:44)
--- NOTE | 2024-07-31 16:42 | PC.NURSE ---
Per Dr. Haro, pt is now med-surg and CIWA q4
--- NOTE | 2024-07-31 18:53 | PC.NURSE ---
pt is currently resting in bed. i assumed care of pt around 1300. pt has been a &o x4, being able to tell me her name and birthday, where she is and why she in in the hospital. pt has been up to the commode with x1 assistance twice this shift and has tolerated well. pt is tolerating room air well with sats >90%. vss. tachy on tele. pt took po meds whole and tolerated well. no complaints of pain. CIWAs to be completed q4. no other requests at this time. call light within reach.
[2024-07-31] MEDS: GUAIFENESIN/DEXTROMETHORPHAN 200MG/20MG 10ML UDC 10 ML PO (20:44)
--- NOTE | 2024-07-31 21:13 | EXP.PN ---
Subjective *Date: 07/31/24 *Time: 21:13 Interval history: Patient is a lot more comfortable today, alert and oriented. Ambulating to bathroom with minimal assistance. However, coughing quite profusely which she states has been going on for the past week. Exam Data for Last 24 hours Vital signs and Labs for Last 24 Hours: Temp Pulse Resp BP Pulse Ox O2 Del Method O2 Flow Rate 99.2 F 112 H 17 101/55 L 93 L Room Air 1 07/31/24 20:00 07/31/24 20:48 07/31/24 20:00 07/31/24 20:00 07/31/24 20:00 07/31/24 20:00 07/31/24 14:25 Laboratory Results - last 24 hr 07/30/24 11:41: Crossmatch (AHG) See Detail 07/31/24 05:41: WBC 11.0 H, RBC 3.19 L D, Hgb 10.0 L D, Hct 29.2 L, MCV 91.4, MCH 31.3 H, MCHC 34.2, RDW 18.2 H, Plt Count 260 D, MPV 8.9, Neut % (Auto) 62.3, Lymph % (Auto) 30.3, [place] % (Auto) 6.8, Eos % (Auto) 0.2, Baso % (Auto) 0.5, Neut # (Auto) 6.8, Lymph # (Auto) 3.3, [place] # (Auto) 0.7, Eos # (Auto) 0.0, Baso # (Auto) 0.1, Sodium 139, Potassium 3.4 L D, Chloride 113 H, Carbon Dioxide 20 L, Anion Gap 9.4, BUN 55 H, Creatinine 1.00 D, Estimated Creat Clear 50, Estimated GFR 54 L, Est GFR ( Amer) 66 D, Glucose 120 H, Calcium 8.4, Total Bilirubin 0.5, AST 38 H D, ALT 24, Alkaline Phosphatase 38, Total Protein 5.0 L, Albumin 2.6 L, Globulin 2.4, Albumin/Globulin Ratio 1.1 I & O for Last 24 hours: Intake & Output 07/28/24 07/29/24 07/30/24 07/31/24 23:59 23:59 23:59 23:59 Intake Total 430 / 430 286 / 286 Output Total Balance 430 / 429 285 / 285 Weight 61.008 kg 63.616 kg Microbiology Reports for the Last 24 Hours: Microbiology 07/30/24 11:06 Urine,Clean Catch Urine Culture - Preliminary Constitutional Constitutional: no acute distress *Routine HEENT Exam Head: Present normocephalic Eye: Present EOMI and PERRL ENT: Present mucous membranes moist *Routine Neck Exam Neck: Present supple; Absent lymphadenopathy *Routine Respiratory Exam Respiratory: Present wheezes; Absent CTA bilaterally *Routine Cardiovascular Exam Cardiovascular: Present RRR *Routine Abdominal Exam Abdominal: Present soft and normoactive bowel sounds; Absent tenderness *Routine Extremities Exam Extremities: Absent cyanosis, clubbing or edema *Routine Skin Exam Skin: Present warm; Absent rash *Routine Neurological Exam Neurological: Present alert and oriented X3 Assessment and Plan *Assessment and plan (1) Acute GI bleeding: Status: Acute Category: Medical Code(s): K92.2 - Gastrointestinal hemorrhage, unspecified (2) Alcohol use disorder: Status: Acute Category: Medical Code(s): F10.90 - Alcohol use, unspecified, uncomplicated Plan Cielo Quarles is a 74-year-old female with a medical history significant for alcohol use disorder, GI bleed who presented with worsening abdominal pain, nausea, and dark emesis. Upon my arrival to interview the patient, patient was having significant abdominal pain and unable to perform an appropriate injury. Per my signout from ED attending and chart review, patient had been binge drinking fireball shots over the past couple days. She was recently admitted to [facility] and an EGD apparently showed stomach ulcers per patient, but she does not know if it revealed esophageal varices. Patient has no known history of cirrhosis, but but does have a longstanding history of alcohol use disorder. Workup in the ED was remarkable for hemoglobin 8.5, BUN 50, relatively normal LFTs, and positive stool occult for blood. CT abdomen/pelvis revealed an indeterminate hyperenhancing focus along the greater curvature of the stomach which may represent ingested material versus hemorrhagic source. Vitals were stable prior to admission, with patient no longer having nausea/vomiting or hematemesis/melena. As such, case discussed with ED provider and decision was made to admit patient for GI bleed. #Mike's ulceration, erosions #Upper GI bleed, resolved #Lower GI bleed, resolved ? EGD about a week ago at [facility] revealed PUD, gastritis, and portal hypertension. ? Patient had been binge drinking fireball shots, and coughing quite significantly prior to admission. ? Patient had a dark bowel movement after admission. Repeat hemoglobin 6.3. ? Soon after arriving to the floor patient became tachycardic, hypotensive, agitated, tremulous. Ultimately, patient's symptoms improved with mass transfusion of 2 units PRBC, IV fluids, and also started on phenobarbital for high suspicion for alcohol withdrawal. ? EGD on 07/31/2024 revealed large hiatal hernia, linear Mike's ulcerations, distal esophageal ring s/p dilation, moderate to marked esophageal dysmotility, mild antral reactive gastropathy. ? It is unclear if significant coughing prior to admission exacerbated Mike's ulcerations causing blood loss but it is very possible. See COPD exacerbation below. ? Hemoglobin stable at 10. ? No further episodes of dark stools today. ? Continue to monitor hemoglobin. #Acute COPD exacerbation ? Patient has had increased cough recently, and exam reveals diminished air movement with wheezing and significant nonproductive coughing. ? Atrovent, Xopenex scheduled every 4 hours and as needed. ? Pulmicort twice daily. ? Given IV Solu-Medrol 40 mg today. Follow-up symptom resolution. ? Start prednisone 40 mg for 4 more days tomorrow. #Alcohol use disorder #Alcohol withdrawal ? Today, patient's mentation significantly improved from morning to afternoon. She is currently alert, oriented x 3 and ambulating with minimal assistance. CIWA scores less than 3. Moved to [facility] floor. ? CIWA protocol. ? Ativan as needed. ? Seizure precautions. #Hypothyroidism ? Resumed home levothyroxine 125 mcg. ? TSH not obtained given patient's recent critical state which can skew TSH. Recommend outpatient follow-up with TSH.
[2024-07-31] MEDS: METHYLPREDNISOLONE SOD SUCC 40MG VIAL 40 MG IV (23:11)
[2024-08-01] VITALS (9 sets, daily range): BP systolic 87–129; BP diastolic 50–70; PULSE 99–121; RESP 18–22; TEMP 36.2–37; O2SAT 91–96; BMI 26.4
[2024-08-01] MEDS: LEVALBUTEROL 1.25MG/3ML NEB 1.25 MG IH ×4 (02:09→23:27)
[2024-08-01] MEDS: IPRATROPIUM BROMIDE 0.5 MG/2.5ML SOLUTION IH ×4 (02:09→23:27)
[2024-08-01] MEDS: SUCRALFATE 1GM TABLET 1 GM PO ×4 (05:16→20:40)
[2024-08-01] MEDS: BUDESONIDE 0.5MG/2ML NEB 0.5 MG IH ×2 (05:51→18:22)
[2024-08-01 06:52] LABS: Basophils % 0.2 % (0.1-2.0); Eosinophils % 0.1 % (0.1-12.0); Hematocrit 24.9 % (37.0-47.0); Hemoglobin 8.2 g/dL (12.2-16.2); Lymphocytes # 0.7 K/mm3 (0.7-4.5); Lymphocytes % 9.2 % (10-50); Mean Corpuscular Hemoglobin 30.8 pg (27.0-31.2); Mean Corpuscular Volume 93.2 fl (81-99); Mean Platelet Volume 8.6 fl (7.4-10.4); Monocytes # 0.2 K/mm3 (0.1-1.0); Monocytes % 2.4 % (1.7-9.3); Neutrophils # 6.4 K/mm3 (1.8-7.8); Platelet Count 212 K/mm3 (142-424); Red Blood Count 2.68 M/mm3 (4.20-5.40); Red Cell Distribution Width 18.7 % (11.5-17.5); White Blood Count 7.2 K/mm3 (4.8-10.8)
[2024-08-01 06:58] LABS: MANUAL DIFFERENTIAL MANUAL DIFFERENTIAL (MANUAL DIFF)
[2024-08-01 07:02] LABS: Albumin Level 2.7 g/dl (3.5-5.0); Chloride 113 mmol/L (98-107); Potassium 3.5 mmoL/L (3.5-5.1); Sodium 141 mmol/L (136-145)
[2024-08-01 07:05] LABS: Alanine Aminotransferase 24 U/L (12-78); Alkaline Phosphatase 39 U/L (38-126); Anion Gap 9.5 mEq/L (5-15); Aspartate Amino Transferase 33 U/L (14-36); Bilirubin,Total 0.3 mg/dl (0.2-1.3); Blood Urea Nitrogen 31 mg/dl (7-17); Carbon Dioxide 22 mmol/L (22.0-30.0); Creatinine Clearance Estimated 51 mL/min (50-200); Estimated Glomerular Filt Rate 70 ml/min (>60); GFR (African American) 85 ML/MIN (>60); Globulin 2.6 g/dL (1.3-3.2); Total Protein,Serum 5.3 g/dl (6.3-8.2)
[2024-08-01 07:06] LABS: Calcium 8.3 mg/dl (8.4-10.2); Glucose 164 mg/dl (74-100)
[2024-08-01] MEDS: FOLIC ACID 1MG TABLET 1 MG PO (08:25)
[2024-08-01] MEDS: LEVOTHYROXINE 125MCG (0.125MG) TAB 125 MCG PO (08:25)
[2024-08-01] MEDS: THIAMINE 100MG TABLET 100 MG PO (08:26)
[2024-08-01] MEDS: predniSONE 20MG TAB 40 MG PO (08:26)
[2024-08-01] MEDS: ONDANSETRON 4MG/2ML VIAL 4 MG IV (11:16)
[2024-08-01 12:33] LABS: Lymphocytes % 8 % (10-50); Neutrophils % 92 % (42-76); Platelet Estimate Normal; RBC Morphology Normal; Total Cells Counted 100
--- NOTE | 2024-08-01 12:41 | SW/DCPLANNER ---
Addendum entered by Charmaine Endeavor 08/03/24 13:11: Per [facility] patient has been accepted for home health services. Addendum entered by [facility] 08/03/24 11:41: Patient information/order has been faxed to Laurent sheldon/ [facility]. I will follow up once reviewed. Addendum entered by Charmaine Endeavor 08/03/24 09:23: Patient is agreeable to home health services and does not have a preference. Home health will be set up at time of discharge. Per MD patient will discharge home later this afternoon. Addendum entered by [facility] 08/02/24 11:10: Patient stated this AM she is still not interested in placement or home health services. I did again explain to patient the importance of placement and patient is not interest. I did call and discuss situation w/ her daughter (Deloris) this AM. Deloris stated that she will call and speak w/ patient then call me back. Addendum entered by Charmaine Endeavor 08/01/24 15:11: Patient was able to ambulate a short distance w/ PT this afternoon. Patient is adamant to return home and is not interested in home health services. I did attempt to contact patient's daughter regarding discharge plans: no answer at this time. Original Note: I spoke w/ patient this AM regarding plans once medically stable for discharge. PT/OT evaluated patient and recommended SNF level of care. Patient is not agreeable to placement at this time. MD was evaluating patient at bedside and had a lengthy conversation w/ patient regarding placement. Patient is still not agreeable to placement. Patient also expressed that she is not interested in home health services at this time. MD and I explained to patient that PT will return after lunch and we will re-evaluate discharge plans pending afternoon session. Discharge date is unknown at this time.
--- NOTE | 2024-08-01 16:05 | XR_ITS ---
FINAL REPORT CLINICAL HISTORY: increased cough/soa COMPARISON: 07/30/2024 FINDINGS: A single portable view of the chest was obtained. Cardiomegaly is once again identified. A moderate-sized hiatal hernia is present. There are mild bibasilar opacities, atelectasis versus scar. The bony thorax is intact. IMPRESSION: Mild bibasilar opacities, atelectasis versus scar. Cardiomegaly and a moderate-sized hiatal hernia are present. Reviewed, Interpreted and Dictated by Grant Mcguire III, MD Transcribed by Hilda Benton Authenticated and [facility]
[2024-08-01] MEDS: BENZONATATE 100MG CAPSULE 200 MG PO (16:46)
[2024-08-01] MEDS: POLYETHYLENE GLYCOL 3350 17 GM PACKET PO (16:46)
[2024-08-01] MEDS: MULTIVITAMIN TABLET 1 EACH PO (16:46)
--- NOTE | 2024-08-01 18:31 | EXP.ACUTE.PN ---
Subjective *Date: 08/01/24 *Time: 18:50 Interval history: Patient somewhat better today. Still having prominent cough. Alert and oriented. Interactive on exam. Denies chest pain. No nausea or vomiting. Tolerating p.o. intake. Medical Exam Vital signs and Labs for Last 24 Hours: Vital Signs Temp Pulse Pulse Resp BP Pulse Ox O2 Del Method 08/01/24 17:00 Room Air 08/01/24 16:00 110 H 08/01/24 16:00 98.5 F 100 H 22 111/63 96 Room Air 08/01/24 15:00 Room Air 08/01/24 13:00 Room Air 08/01/24 12:00 110 H 08/01/24 12:00 98 F 107 H 19 108/52 L 96 Room Air 08/01/24 11:00 Room Air 08/01/24 09:00 Room Air 08/01/24 08:00 110 H 08/01/24 08:00 110 H Room Air 08/01/24 08:00 98.6 F 112 H 18 87/50 L 91 L Room Air 08/01/24 06:40 Room Air 08/01/24 04:56 Room Air 08/01/24 04:00 98.2 F 118 H 18 112/55 L 92 L Room Air 08/01/24 04:00 114 H 08/01/24 04:00 114 H 08/01/24 03:00 Room Air 08/01/24 02:10 110 H 08/01/24 02:10 109 H 08/01/24 01:10 Room Air 08/01/24 00:58 Room Air 08/01/24 00:00 104 H 08/01/24 00:00 104 H 08/01/24 00:00 98.4 F 110 H 18 102/51 L 93 L Room Air 07/31/24 23:00 Room Air 07/31/24 22:50 98 H 07/31/24 22:50 100 H 07/31/24 21:00 Room Air 07/31/24 20:48 112 H 07/31/24 20:48 114 H 07/31/24 20:00 93 L Room Air 07/31/24 20:00 113 H 07/31/24 20:00 113 H 07/31/24 20:00 99.2 F 110 H 17 101/55 L 93 L Room Air 07/31/24 18:48 Room Air Intake and Output 08/01/24 08/01/24 08/01/24 07:59 15:59 23:59 Intake Total 100 / 790 570 / 790 120 / 790 Output Total 0 / 0 0 / 0 0 / 0 Balance 100 / 790 570 / 790 120 / 790 Intake: Intake, Oral Amount 100 / 790 570 / 790 120 / 790 Output: Output, Urine Amount 0 / 0 0 / 0 0 / 0 Other: Number of Voids 0 Number of Unmeasured Voids 1 2 Weight 65.045 kg Patient Weight 08/01/24 23:59 Weight 65.045 kg Laboratory Results - last 24 hr 07/30/24 11:06: Urine Color Yellow, Urine Appearance Cloudy, Urine pH 6.0, Ur Specific [place] 1.015, Urine Protein Negative, Urine Glucose (UA) Negative, Urine Ketones Trace, Urine Blood Negative, Urine Nitrate Negative, Urine Bilirubin Negative, Urine Urobilinogen 0.2, Ur Leukocyte Esterase Trace, Urine RBC None, Urine WBC Occasional, Ur Squamous Epith Cells Occasional, Urine Bacteria 4+, Urine Yeast Occasional 08/01/24 05:47: WBC 7.2 D, RBC 2.68 L, Hgb 8.2 L, Hct 24.9 L, MCV 93.2, MCH 30.8, MCHC 33.0, RDW 18.7 H, Plt Count 212, MPV 8.6, Neut % (Auto) 88.0 H, Lymph % (Auto) 9.2 L, [place] % (Auto) 2.4, Eos % (Auto) 0.1, Baso % (Auto) 0.2, Neut # (Auto) 6.4, Lymph # (Auto) 0.7, [place] # (Auto) 0.2, Eos # (Auto) 0.0, Baso # (Auto) 0.0, Total Counted 100, Neutrophils % (Manual) 92 H, Lymphocytes % (Manual) 8 L, Platelet Estimate Normal, RBC Morphology Normal, Sodium 141, Potassium 3.5, Chloride 113 H, Carbon Dioxide 22, Anion Gap 9.5, BUN 31 H D, Creatinine 0.80, Estimated Creat Clear 51, Estimated GFR 70, Est GFR ( Amer) 85 D, Glucose 164 H, Calcium 8.3 L, Total Bilirubin 0.3, AST 33, ALT 24, Alkaline Phosphatase 39, Total Protein 5.3 L, Albumin 2.7 L, Globulin 2.6, Albumin/Globulin Ratio 1.0 L I & O for Labs for Last 24 Hours: Intake & Output 07/29/24 07/30/24 07/31/24 08/01/24 23:59 23:59 23:59 23:59 Intake Total 430 / 430 286 / 386 790 / 790 Output Total / 0 / 0 Balance 430 / 429 285 / 385 790 / 790 Weight 61.008 kg 63.616 kg 65.045 kg Microbiology Reports for the Last 24 Hours: Microbiology 07/30/24 10:47 Blood Blood Culture - Preliminary NO GROWTH AFTER 24 HOURS 07/30/24 11:06 Urine,Clean Catch Urine Culture - Preliminary Gram Negative Rods Constitutional: Present no acute distress, obese, chronically ill appearing and cooperative Head: Present atraumatic and normocephalic ENT: Present normal exam Respiratory: Present rhonchi, wheezes and normal respiratory effort; Absent accessory muscle use or crackles Cardiac: Present Tachycardia GI: Present soft and normal bowel sounds; Absent distention or tenderness Extremities: Present normal inspection and full ROM; Absent edema Skin: Present intact; Absent erythema Neuro: Present Grossly Intact, alert, awake, oriented x 3 and moves all extremities Assessment and Plan *Assessment and plan (1) Acute GI bleeding: Status: Acute Category: Medical Code(s): K92.2 - Gastrointestinal hemorrhage, unspecified (2) Alcohol use disorder: Status: Acute Category: Medical Code(s): F10.90 - Alcohol use, unspecified, uncomplicated (3) Acute on chronic anemia: Status: Acute Category: Medical Code(s): D64.9 - Anemia, unspecified (4) COPD exacerbation: Status: Acute Category: Medical Code(s): J44.1 - Chronic obstructive pulmonary disease with (acute) exacerbation Plan Cielo Quarles is a 74-year-old female with a medical history significant for alcohol use disorder, GI bleed who presented with worsening abdominal pain, nausea, and dark emesis. Upon my arrival to interview the patient, patient was having significant abdominal pain and unable to perform an appropriate injury. Per my signout from ED attending and chart review, patient had been binge drinking fireball shots over the past couple days. She was recently admitted to [facility] and an EGD apparently showed stomach ulcers per patient, but she does not know if it revealed esophageal varices. Patient has no known history of cirrhosis, but but does have a longstanding history of alcohol use disorder. Workup in the ED was remarkable for hemoglobin 8.5, BUN 50, relatively normal LFTs, and positive stool occult for blood. CT abdomen/pelvis revealed an indeterminate hyperenhancing focus along the greater curvature of the stomach which may represent ingested material versus hemorrhagic source. Vitals were stable prior to admission, with patient no longer having nausea/vomiting or hematemesis/melena. As such, case discussed with ED provider and decision was made to admit patient for GI bleed. Showing some improvement. Continues to have prominent cough. Will advance diet. If tolerates advancement, plan to discharge home tomorrow. Patient has been offered home health and does not want home health at this time. Therapy working with her daily. Currently standby assist. High risk for readmission. Problems addressed as follows: #Mike's ulceration, erosions #Upper GI bleed, resolved #Lower GI bleed, resolved ? EGD about 2 weeks ago at [facility] revealed PUD, gastritis, and portal hypertension. ? Patient had been binge drinking fireball shots, and coughing quite significantly prior to admission. ? Hemoglobin 6.3 at admission. Status post transfusion of 2 units. Hemoglobin has done well since. 8.2 this morning. Repeat CBC, CMP, magnesium ordered for the morning. ? EGD on 07/31/2024 revealed large hiatal hernia, linear Mike's ulcerations, distal esophageal ring s/p dilation, moderate to marked esophageal dysmotility, mild antral reactive gastropathy. ? It is unclear if significant coughing prior to admission exacerbated Mike's ulcerations causing blood loss but it is very possible. See COPD exacerbation below. - No further episodes of dark stools today. -Continue pantoprazole 40 mg nightly, supra fate 1 g ACHS. #Acute COPD exacerbation ? Patient has had increased cough recently, and exam reveals diminished air movement with wheezing and significant nonproductive coughing. ? Atrovent, Xopenex scheduled every 4 hours and as needed. ? Pulmicort twice daily. ? Can you prednisone 40 mg x 5 days -Initiate promethazine/codeine for cough -Given prominence of cough and wheeze, initiate azithromycin 500 mg x 5 days. #Alcohol use disorder #Alcohol withdrawal ? Today, patient's mentation significantly improved from morning to afternoon. She is currently alert, oriented x 3 and ambulating with minimal assistance. CIWA scores less than 3. Moved to [facility] floor. ? CIWA protocol. ? Ativan as needed. ? Seizure precautions. #Hypothyroidism ? Resumed home levothyroxine 125 mcg. ? TSH not obtained given patient's recent critical state which can skew TSH. Recommend outpatient follow-up with TSH. Full code Full liquid diet, will advance to regular tonight if tolerates Holding anticoagulation in the setting of anemia
--- NOTE | 2024-08-01 18:46 | PC.NURSE ---
pt is currently resting in bed. pt has been a &o x4, being able to tell me her name and birthday, where she is and why she in in the hospital. pt has been up to the commode with x1 assistance once this shift and has tolerated well. pt is tolerating room air well with sats >90%. vss. tachy on tele. pt took po meds whole and tolerated well. no complaints of pain. pt does become restless at times, but this resolves on its own. CIWAs to be completed q4. meds for cough given per dec. zofran given once for nausea. no other requests at this time. call light within reach.
[2024-08-01] MEDS: PROMETHAZINE W/CODEINE 6.25MG/10MG 5ML UDC 5 ML PO (18:53)
[2024-08-01] MEDS: AZITHROMYCIN 500 MG in 0.9 % SODIUM CHLORIDE 250 ML 250 MG IV (19:58)
[2024-08-01] MEDS: ATORVASTATIN 20MG TABLET 20 MG PO (20:39)
[2024-08-01] MEDS: TRAZODONE 50MG TABLET 100 MG PO (20:40)
[2024-08-01] MEDS: PANTOPRAZOLE 40MG TABLET 40 MG PO (20:40)
--- NOTE | 2024-08-01 20:59 | EXP.EVENT.NO ---
Problem: Nursing noted that patient was quite uncomfortable and wanted something for sleep. Also noting that patient was a long-term smoker normally a pack and a half a day, is not on any nicotine replacement at this time Exam: Patient is alert and oriented and is asking for something to sleep. She noted she normally takes 150 mg of trazodone at night, reviewing her records I did not find this medication listed, but patient is anxious very uncomfortable in bed. Plan 1. Will start very low-dose nicotine patch to see if this might help with some of her symptoms as she may be in some nicotine withdrawal. 2. Will add trazodone 100 mg nightly to see if this will help her sleep. Then will advance that dosage if needed for better results as long as we do not have hypersomnolence.
[2024-08-02] VITALS (13 sets, daily range): BP systolic 96–119; BP diastolic 45–68; PULSE 89–120; RESP 16–19; TEMP 36.5–37.3; O2SAT 90–99; BMI 25.7
[2024-08-02] MEDS: LEVALBUTEROL 1.25MG/3ML NEB 1.25 MG IH ×4 (05:50→23:41)
[2024-08-02] MEDS: BUDESONIDE 0.5MG/2ML NEB 0.5 MG IH ×2 (05:51→18:31)
[2024-08-02] MEDS: IPRATROPIUM BROMIDE 0.5 MG/2.5ML SOLUTION IH ×4 (05:51→23:41)
[2024-08-02] MEDS: LEVOTHYROXINE 125MCG (0.125MG) TAB 125 MCG PO (06:03)
[2024-08-02] MEDS: SUCRALFATE 1GM TABLET 1 GM PO ×4 (06:03→20:54)
[2024-08-02 06:39] LABS: Albumin Level 2.5 g/dl (3.5-5.0); Chloride 114 mmol/L (98-107); Sodium 142 mmol/L (136-145)
[2024-08-02 06:42] LABS: Alanine Aminotransferase 25 U/L (12-78); Albumin/Globulin Ratio 1.1 (1.1-1.8); Alkaline Phosphatase 34 U/L (38-126); Anion Gap 5.8 mEq/L (5-15); Aspartate Amino Transferase 41 U/L (14-36); Bilirubin,Total 0.4 mg/dl (0.2-1.3); Blood Urea Nitrogen 24 mg/dl (7-17); Carbon Dioxide 25 mmol/L (22.0-30.0); Creatinine Clearance Estimated 49 mL/min (50-200); Estimated Glomerular Filt Rate 82 ml/min (>60); GFR (African American) 99 ML/MIN (>60); Globulin 2.3 g/dL (1.3-3.2); Total Protein,Serum 4.8 g/dl (6.3-8.2)
[2024-08-02 06:43] LABS: Calcium 7.9 mg/dl (8.4-10.2); Glucose 101 mg/dl (74-100)
[2024-08-02 06:53] LABS: Potassium 2.8 mmoL/L (3.5-5.1)
--- NOTE | 2024-08-02 06:54 | PC.NURSE ---
Critical Potassium of 2.8 reported to Aly Hannah [employer]MENT [employer]. T order the electrolyte Replacement protocol.
[2024-08-02 07:00] LABS: Basophils % 0.5 % (0.1-2.0); Eosinophils % 0.4 % (0.1-12.0); Hematocrit 22.1 % (37.0-47.0); Lymphocytes # 2.4 K/mm3 (0.7-4.5); Mean Corpuscular HGB Conc 32.4 g/dL (31.8-35.4); Mean Corpuscular Hemoglobin 31.4 pg (27.0-31.2); Mean Corpuscular Volume 97.2 fl (81-99); Mean Platelet Volume 8.3 fl (7.4-10.4); Monocytes # 0.5 K/mm3 (0.1-1.0); Monocytes % 6.6 % (1.7-9.3); Neutrophils # 4.8 K/mm3 (1.8-7.8); Neutrophils % 61.5 % (37.0-80.0); Platelet Count 191 K/mm3 (142-424); Red Blood Count 2.27 M/mm3 (4.20-5.40); Red Cell Distribution Width 19.3 % (11.5-17.5); White Blood Count 7.9 K/mm3 (4.8-10.8)
[2024-08-02 07:06] LABS: Hemoglobin 7.2 g/dL (12.2-16.2)
--- NOTE | 2024-08-02 07:21 | PC.NURSE ---
in report from EARLENE, RN it was passed along that herminio on nightshift was aware of potassium of 2.8. i sent an electrolyte protocol to pharmacy.
--- NOTE | 2024-08-02 08:00 | EXP.PN ---
Subjective *Date: 08/02/24 *Time: 08:00 Interval history: Patient awake and alert today. No melena or hematochezia and no hematemesis. No significant abdominal pain Exam Data for Last 24 hours Vital signs and Labs for Last 24 Hours: Temp Pulse Resp BP Pulse Ox O2 Del Method O2 Flow Rate 98.3 F 110 H 18 96/56 L 95 Room Air 3 08/02/24 07:51 08/02/24 07:51 08/02/24 07:51 08/02/24 07:51 08/02/24 07:51 08/02/24 07:51 08/01/24 20:00 Laboratory Results - last 24 hr 07/30/24 11:06: Urine Color Yellow, Urine Appearance Cloudy, Urine pH 6.0, Ur Specific [place] 1.015, Urine Protein Negative, Urine Glucose (UA) Negative, Urine Ketones Trace, Urine Blood Negative, Urine Nitrate Negative, Urine Bilirubin Negative, Urine Urobilinogen 0.2, Ur Leukocyte Esterase Trace, Urine RBC None, Urine WBC Occasional, Ur Squamous Epith Cells Occasional, Urine Bacteria 4+, Urine Yeast Occasional 08/01/24 05:47: Total Counted 100, Neutrophils % (Manual) 92 H, Lymphocytes % (Manual) 8 L, Platelet Estimate Normal, RBC Morphology Normal 08/02/24 05:40: WBC 7.9, RBC 2.27 L, Hgb 7.2 L D, Hct 22.1 L, MCV 97.2, MCH 31.4 H, MCHC 32.4, RDW 19.3 H, Plt Count 191, MPV 8.3, Neut % (Auto) 61.5, Lymph % (Auto) 31.0, [place] % (Auto) 6.6, Eos % (Auto) 0.4, Baso % (Auto) 0.5, Neut # (Auto) 4.8, Lymph # (Auto) 2.4, [place] # (Auto) 0.5, Eos # (Auto) 0.0, Baso # (Auto) 0.0, Sodium 142, Potassium 2.8 L*, Chloride 114 H, Carbon Dioxide 25, Anion Gap 5.8, BUN 24 H, Creatinine 0.70, Estimated Creat Clear 49, Estimated GFR 82, Est GFR ( Amer) 99, Glucose 101 H D, Calcium 7.9 L, Total Bilirubin 0.4, AST 41 H, ALT 25, Alkaline Phosphatase 34 L, Total Protein 4.8 L, Albumin 2.5 L, Globulin 2.3, Albumin/Globulin Ratio 1.1 I & O for Last 24 hours: Intake & Output 07/30/24 07/31/24 08/01/24 08/02/24 23:59 23:59 23:59 23:59 Intake Total 430 / 430 286 / 386 790 / 1280 490 / 490 Output Total 0 / 0 Balance 430 / 429 285 / 385 790 / 1280 490 / 490 Weight 134 lb 8 oz 140 lb 4 oz 143 lb 6.4 oz 139 lb 12.8 oz Microbiology Reports for the Last 24 Hours: Microbiology 07/30/24 11:06 Urine,Clean Catch Urine Culture - Final Klebsiella pneumoniae 07/30/24 10:47 Blood Blood Culture - Preliminary NO GROWTH AFTER 24 HOURS Assessment and Plan *Assessment and plan (1) Acute GI bleeding: Status: Acute Category: Medical Code(s): K92.2 - Gastrointestinal hemorrhage, unspecified (2) Cirrhosis with alcoholism: Status: Acute Category: Medical Code(s): K70.30 - Alcoholic cirrhosis of liver without ascites (3) Macrocytic anemia: Status: Acute Category: Medical Code(s): D53.9 - Nutritional anemia, unspecified Plan 1. Anemia With initial macrocytic indices. No further GI blood loss. The patient does not have portal hypertension or hypersplenism. Would recommend thiamine and folate. 2. Hepatic fibrosis. Reviewed CAT scan and ultrasound. There is no splenomegaly and no evidence of portal hypertension. Her liver chemistries are just above the normal limits. I do feel that she has alcohol induced liver injury but this likely represents hepatic fibrosis and possible early well compensated cirrhosis. Patient needs alcohol rehabilitation. At the time of EGD, she did have a large hiatal hernia with Mike's erosions. She also had some blanching of the mucosa. I did review the patient's CAT scan and she does have some mesenteric arterial calcifications but there was no mention of any arterial stenosis. Follow-up with GI/hepatology in 2 weeks post discharge.
[2024-08-02] MEDS: THIAMINE 100MG TABLET 100 MG PO (08:09)
[2024-08-02] MEDS: FOLIC ACID 1MG TABLET 1 MG PO (08:09)
[2024-08-02] MEDS: predniSONE 20MG TAB 40 MG PO (08:09)
[2024-08-02] MEDS: LEVOFLOXACIN/D5W 750 MG/150 ML 750 MG/150 ML PIGGYBACK 100 MG IV (08:59)
[2024-08-02] MEDS: FUROSEMIDE 40MG/4ML VIAL 40 MG IV (08:59)
[2024-08-02] MEDS: POTASSIUM CHLORIDE 20MEQ TAB 40 MEQ PO ×3 (09:00→16:07)
[2024-08-02] MEDS: NICOTINE 7MG/24HRS PATCH 7 MG TD (09:00)
--- NOTE | 2024-08-02 11:39 | P.PN_ITS ---
Subjective *Date: 08/02/24 *Time: 18:14 Interval history: Patient's morning labs unfortunately showed a drop in her hemoglobin again by 1 point to 7.2 from 8.2. Appears uncomfortable. No bowel movement. No shortness of breath. Still has prominent cough. Denies any chest pain. Stating she needs to go home. Expressed my concern for her continued worsening anemia. Extensive discussion with patient and her daughter on the phone, amenable to home health after much encouragement. Patient has been getting up with nursing assistance and ambulating to bathroom with standby assist. Medical Exam Vital signs and Labs for Last 24 Hours: Vital Signs Temp Pulse Pulse Resp BP Pulse Ox O2 Del Method 08/02/24 11:12 90 08/02/24 11:12 89 08/02/24 11:00 Room Air 08/02/24 09:00 Room Air 08/02/24 08:00 110 H Room Air 08/02/24 08:00 110 H 08/02/24 07:51 98.3 F 110 H 18 96/56 L 95 Room Air 08/02/24 06:26 Room Air 08/02/24 05:51 101 H 08/02/24 05:51 105 H 08/02/24 05:51 93 L Room Air 08/02/24 05:00 Room Air 08/02/24 04:00 99.2 F 111 H 18 104/55 L 90 L Room Air 08/02/24 04:00 106 H 08/02/24 02:46 Room Air 08/02/24 01:00 Room Air 08/02/24 00:05 97 H 08/02/24 00:04 98 H 08/02/24 00:00 120 H 08/02/24 00:00 97.7 F 108 H 16 108/52 L 97 Room Air 08/01/24 23:00 Room Air 08/01/24 21:00 Room Air 08/01/24 20:00 96 Room Air 08/01/24 20:00 119 H 08/01/24 20:00 97.2 F L 121 H 18 129/70 96 Nasal Cannula 08/01/24 19:33 100 H 08/01/24 19:31 99 H 08/01/24 18:34 Room Air 08/01/24 17:00 Room Air 08/01/24 16:00 110 H 08/01/24 16:00 98.5 F 100 H 22 111/63 96 Room Air 08/01/24 15:00 Room Air 08/01/24 13:00 Room Air 08/01/24 12:00 110 H 08/01/24 12:00 98 F 107 H 19 108/52 L 96 Room Air O2 Flow Rate 08/02/24 11:12 08/02/24 11:12 08/02/24 11:00 08/02/24 09:00 08/02/24 08:00 08/02/24 08:00 08/02/24 07:51 08/02/24 06:26 08/02/24 05:51 08/02/24 05:51 08/02/24 05:51 08/02/24 05:00 08/02/24 04:00 08/02/24 04:00 08/02/24 02:46 08/02/24 01:00 08/02/24 00:05 08/02/24 00:04 08/02/24 00:00 08/02/24 00:00 08/01/24 23:00 08/01/24 21:00 08/01/24 20:00 08/01/24 20:00 08/01/24 20:00 3 08/01/24 19:33 08/01/24 19:31 08/01/24 18:34 08/01/24 17:00 08/01/24 16:00 08/01/24 16:00 08/01/24 15:00 08/01/24 13:00 08/01/24 12:00 08/01/24 12:00 Intake and Output 08/01/24 08/02/24 08/02/24 23:59 07:59 15:59 Intake Total 120 / 1280 490 / 1030 540 / 1030 Output Total 0 / 0 Balance 120 / 1280 490 / 1030 540 / 1030 Intake: Intake, Oral Amount 120 / 1030 240 / 540 300 / 540 Intake, Total IV Amount 250 / 490 240 / 490 Azithromycin 500 mg In 0.9 % 250 / 490 240 / 490 Sodium Chloride 250 ml @ 250 mls/hr IV Q24H [facility] Rx#:[id number] Output: Output, Urine Amount 0 / 0 Other: Number of Unmeasured Voids 1 1 Weight 63.412 kg Patient Weight 08/02/24 23:59 Weight 63.412 kg Laboratory Results - last 24 hr 07/30/24 11:41: Crossmatch (AHG) See Detail 08/01/24 05:47: Total Counted 100, Neutrophils % (Manual) 92 H, Lymphocytes % (Manual) 8 L, Platelet Estimate Normal, RBC Morphology Normal 08/02/24 05:40: WBC 7.9, RBC 2.27 L, Hgb 7.2 L D, Hct 22.1 L, MCV 97.2, MCH 31.4 H, MCHC 32.4, RDW 19.3 H, Plt Count 191, MPV 8.3, Neut % (Auto) 61.5, Lymph % (Auto) 31.0, [place] % (Auto) 6.6, Eos % (Auto) 0.4, Baso % (Auto) 0.5, Neut # (Auto) 4.8, Lymph # (Auto) 2.4, [place] # (Auto) 0.5, Eos # (Auto) 0.0, Baso # (Auto) 0.0, Sodium 142, Potassium 2.8 L*, Chloride 114 H, Carbon Dioxide 25, Anion Gap 5.8, BUN 24 H, Creatinine 0.70, Estimated Creat Clear 49, Estimated GFR 82, Est GFR ( Amer) 99, Glucose 101 H D, Calcium 7.9 L, Total Bilirubin 0.4, AST 41 H, ALT 25, Alkaline Phosphatase 34 L, Total Protein 4.8 L, Albumin 2.5 L, Globulin 2.3, Albumin/Globulin Ratio 1.1 I & O for Labs for Last 24 Hours: Intake & Output 07/30/24 07/31/24 08/01/24 08/02/24 23:59 23:59 23:59 23:59 Intake Total 430 / 430 286 / 386 790 / 1280 1030 / 1030 Output Total 1 / 1 0 / 0 Balance 430 / 429 285 / 385 790 / 1280 1030 / 1030 Weight 61.008 kg 63.616 kg 65.045 kg 63.412 kg Microbiology Reports for the Last 24 Hours: Microbiology 07/30/24 10:47 Blood Blood Culture - Preliminary NO GROWTH AFTER 48 HOURS 07/30/24 11:06 Urine,Clean Catch Urine Culture - Final Klebsiella pneumoniae Constitutional: Present no acute distress, obese, chronically ill appearing and cooperative Head: Present atraumatic and normocephalic ENT: Present normal exam Respiratory: Present rhonchi, wheezes and normal respiratory effort; Absent accessory muscle use or crackles Cardiac: Present Tachycardia GI: Present soft and normal bowel sounds; Absent distention or tenderness Extremities: Present normal inspection and full ROM; Absent edema Skin: Present intact; Absent erythema Neuro: Present Grossly Intact, alert, awake, oriented x 3 and moves all extremities Assessment and Plan *Assessment and plan (1) Acute GI bleeding: Status: Acute Category: Medical Code(s): K92.2 - Gastrointestinal hemorrhage, unspecified (2) Alcohol use disorder: Status: Acute Category: Medical Code(s): F10.90 - Alcohol use, unspecified, uncomplicated (3) Acute on chronic anemia: Status: Acute Category: Medical Code(s): D64.9 - Anemia, unspecified (4) COPD exacerbation: Status: Acute Category: Medical Code(s): J44.1 - Chronic obstructive pulmonary disease with (acute) exacerbation Plan Cielo Quarles is a 74-year-old female with a medical history significant for alc ohol use disorder, GI bleed who presented with worsening abdominal pain, nausea, and dark emesis. Upon my arrival to interview the patient, patient was having significant abdominal pain and unable to perform an appropriate injury. Per my signout from ED attending and chart review, patient had been binge drinking fireball shots over the past couple days. She was recently admitted to [facility] and an EGD apparently showed stomach ulcers per patient, but she does not know if it revealed esophageal varices. Patient has no known history of cirrhosis, but but does have a longstanding history of alcohol use disorder. Workup in the ED was remarkable for hemoglobin 8.5, BUN 50, relatively normal LFTs, and positive stool occult for blood. CT abdomen/pelvis revealed an indeterminate hyperenhancing focus along the greater curvature of the stomach which may represent ingested material versus hemorrhagic source. Vitals were stable prior to admission, with patient no longer having nausea/vomiting or hematemesis/melena. As such, case discussed with ED provider and decision was made to admit patient for GI bleed. No further active signs of bleeding however her hemoglobin dropped again today. Would like to see stability in this level before discharging home. Will discharge home with home health. Anticipate discharge tomorrow if hemoglobin and electrolytes stable. Problems addressed as follows: #Mike's ulceration, erosions #Upper GI bleed, resolved #Lower GI bleed, resolved Blood loss anemia ? EGD about 2 weeks ago at [facility] revealed PUD, gastritis, and portal hypertension. ? Patient had been binge drinking fireball shots, and coughing quite significantly prior to admission. ? Hemoglobin 6.3 at admission. Status post transfusion of 2 units. Hemoglobin 7.2 this morning. Repeat H&H ordered for the afternoon, improved back to 8.8. No active signs of bleeding. Hemoglobin yesterday 8.2. Concern today's low was a lab error. Appears stable. Repeat CBC, CMP, magnesium ordered for the morning. ? EGD on 07/31/2024 revealed large hiatal hernia, linear Mike's ulcerations, distal esophageal ring s/p dilation, moderate to marked esophageal dysmotility, mild antral reactive gastropathy. ? It is unclear if significant coughing prior to admission exacerbated Mike's ulcerations causing blood loss but it is very possible. See COPD exacerbation below. -No bowel movement in 2 days. -Continue pantoprazole 40 mg nightly, sucralfate 1 g ACHS. -Transfusion threshold hemoglobin less than 7. -BUN continues to improve at 24 Hypokalemia: potassium 2.8. Replacing orally today. Repeat labs ordered for this afternoon. #Acute COPD exacerbation ? Patient has had increased cough recently, and exam reveals diminished air movement with wheezing and significant nonproductive coughing. ? Atrovent, Xopenex scheduled every 4 hours and as needed. ? Pulmicort twice daily. ? Continue prednisone 40 mg x 5 days - promethazine/codeine for cough, appears to be doing better today. -Transition antibiotics to levofloxacin. Patient has UTI as below, dual coverage for respiratory and urinary source UTI: Urine growing Klebsiella. Sensitive to Levaquin. Initiate 750 mg daily to complete 5 days. #Alcohol use disorder #Alcohol withdrawal Cirrhosis ? Today, patient's mentation significantly improved from morning to afternoon. She is currently alert, oriented x 3 and ambulating with minimal assistance. CIWA scores less than 3. Moved to [facility] floor. ? CIWA protocol. ? Ativan as needed. ? Seizure precautions. -Per review of ultrasound of abdomen, patient has cirrhosis. Will need follow- up with hepatology as an outpatient. #Hypothyroidism ? Resumed home levothyroxine 125 mcg. ? TSH not obtained given patient's recent critical state which can skew TSH. Recommend outpatient follow-up with TSH. Full code regular diet Holding anticoagulation in the setting of anemia
[2024-08-02] MEDS: SENNOSIDES 8.6MG/DOCUSATE 50MG TABLET 2 TAB PO (12:00)
--- NOTE | 2024-08-02 13:44 | CA_ITS ---
APPROVED REPORT EXAM: Comprehensive 2D, Doppler, and color-flow Echocardiogram Machine Brush Maker: Ratna Powers, RT(R) Ht: 5 ft 2 in Wt: 132lbs BSA: 1.60 BP: 96/56 mmHg Indications: CHF, GI BLEED, alcohol use disorder, smoker 2D Dimensions Aortic Root 1.86 cm F: 2.7 - 3.3 EF AP2 60.8 % Left Atrium 3.67 cm F: 2.7 - 3.8 GL Strain -16.1 % M-Mode Dimensions RVDd 3.53 cm (0.9-2.6) LVDd 2.85 cm (3.5-5.7) Ao Diam 2.62 cm (2.0-3.7) LVDs 1.97 cm (3.5-5.7) IVSd 1.08 cm (0.6-1.1) PWd 1.00 cm (0.6-1.1) EF (Teich) 60.50% FS 30.90% EDV (Teich) 30.90 mL ESV (Teich) 12.20 mL LV Diastology E Decel Time 150 (160-240 msec) E/A Ratio 0.9 MED E' 6.2 (>= 7 cm/sec) E'/MED E' Ratio 23.85 (<= 14) LAT E' 7.0 (>= 10 cm/sec) E/LAT E' Ratio 21.13 (<= 14) Mitral Valve MV E Max Ok. 148.0 (40-130 cm/s) MV A Velocity 159.0 (40-130 cm/s) E/A Ratio 0.93 MV Decel. Time 150 (160-240 ms) MV PHT 79.0 ms Left Ventricle The left ventricle is normal size. The left ventricular systolic function is normal. The left ventricular ejection fraction is within the normal range. There is increased LV wall thickness. IVSD is 1.3 cm. There is normal LV segmental wall motion. Grade 2 diastolic dysfunction. LVEF is 55%. Right Ventricle Right ventricle is mildly dilated. The right ventricular systolic function is normal. Atria Left atrium is moderately dilated. The right atrium is moderately dilated. There is no Doppler evidence of interatrial shunt. Aortic Valve The aortic valve is mildly thickened. There is no hemodynamically significant aortic valvular stenosis. Trace aortic regurgitation. Mitral Valve Moderate mitral annular calcification. The mitral valve leaflets are mildly thickened. No evidence of mitral valve stenosis. Mild mitral regurgitation. Tricuspid Valve The tricuspid valve leaflets are thin and pliable. Trace tricuspid regurgitation. There is insufficient TR jet to estimate RVSP. Pulmonic Valve The pulmonary valve is normal in structure. Trace pulmonic regurgitation. Great Vessels The aortic root is normal in size. The ascending aorta is not well-visualized. IVC is normal in size and collapses >50% with inspiration. Pericardium There is no pericardial effusion. Other Information Study Quality: Technically Difficult Conclusion Technically difficult study due to poor acoustic windows. Normal biventricular systolic function. Grade 2 diastolic dysfunction. Mild RV dilation. Biatrial dilation. Mild MR In the setting of increased LV wall thickness (IVSd 1.3 cm), grade 2 diastolic dysfunction, and biatrial dilation, further outpatient evaluation for infiltrative cardiomyopathy is suggested with outpatient cardiac MRI (cardiomyopathy protocol), PYP nuclear scan, and amyloidosis lab workup. Electronically signed by : Lorrie Bah MD 08/03/2024 01:55:36
[2024-08-02 14:36] LABS: Magnesium 1.5 mg/dl (1.6-2.3)
[2024-08-02 14:47] LABS: Hematocrit 26.5 % (37.0-47.0)
[2024-08-02 14:53] LABS: Chloride 110 mmol/L (98-107); Potassium 3.7 mmoL/L (3.5-5.1); Sodium 142 mmol/L (136-145)
[2024-08-02 14:54] LABS: Hemoglobin 8.8 g/dL (12.2-16.2)
[2024-08-02 14:56] LABS: Anion Gap 9.7 mEq/L (5-15); Blood Urea Nitrogen 25 mg/dl (7-17); Carbon Dioxide 26 mmol/L (22.0-30.0); Creatinine Clearance Estimated 49 mL/min (50-200); Estimated Glomerular Filt Rate 61 ml/min (>60); GFR (African American) 74 ML/MIN (>60)
[2024-08-02 14:57] LABS: Calcium 8.3 mg/dl (8.4-10.2); Glucose 163 mg/dl (74-100)
[2024-08-02] MEDS: MAGNESIUM SULFATE IN WATER 2 GM/50 ML PIGGYBACK IV ×2 (16:06→17:08)
[2024-08-02] MEDS: MULTIVITAMIN TABLET 1 EACH PO (16:07)
--- NOTE | 2024-08-02 17:23 | PC.NURSE ---
pt is currently resting supine in bed. a&o x4 pt has been up to the chair numerous times today and has ambulated to the restroom with standby assistance. pt has tolerated po intake well. no complaints of pain. on two separate occasions, pt experienced urinary incontinence and soiled the entire bed. she said that this is not something that she usually struggles with. no bm this shift. pt has been treated with abx per mar and both potassium and magnesium per electrolyte protocol. pt worked with PT/OT today as well. vss. pt has still been receiving q4 CIWAs and has scored a 0 and a 1 on the last two. no complaints of nausea, perspiration, disturbances or anxiety. pt has tolerated RA with sats >90%. no complaints at this time. call light in reach, bed in low and locked position, and bed alarm on for safety.
[2024-08-02] MEDS: ATORVASTATIN 20MG TABLET 20 MG PO (20:54)
[2024-08-02] MEDS: PANTOPRAZOLE 40MG TABLET 40 MG PO (20:54)
[2024-08-02] MEDS: TRAZODONE 50MG TABLET 100 MG PO (20:54)
[2024-08-03] VITALS: BP 117/69; PULSE 104; RESP 18; TEMP 36.9; O2SAT 91
[2024-08-03 04:00] VITALS: BP 109/67; PULSE 99; RESP 16; TEMP 36.7; O2SAT 92; BMI 25.4
--- NOTE | 2024-08-03 05:37 | PC.NURSE ---
Patient has had a good night. No cough noted. No complaints voiced. Says she is going to go home and drink her some fireball.
[2024-08-03] MEDS: LEVOTHYROXINE 125MCG (0.125MG) TAB 125 MCG PO (06:00)
[2024-08-03] MEDS: SUCRALFATE 1GM TABLET 1 GM PO (06:00)
[2024-08-03] MEDS: IPRATROPIUM BROMIDE 0.5 MG/2.5ML SOLUTION IH ×2 (06:12→11:03)
[2024-08-03] MEDS: LEVALBUTEROL 1.25MG/3ML NEB 1.25 MG IH ×2 (06:12→11:03)
[2024-08-03] MEDS: BUDESONIDE 0.5MG/2ML NEB 0.5 MG IH (06:12)
[2024-08-03 06:14] VITALS: PULSE 95; O2SAT 90
[2024-08-03 07:03] LABS: Albumin Level 2.9 g/dl (3.5-5.0); Chloride 108 mmol/L (98-107); Potassium 4.1 mmoL/L (3.5-5.1); Sodium 136 mmol/L (136-145)
[2024-08-03 07:06] LABS: Alanine Aminotransferase 47 U/L (12-78); Albumin/Globulin Ratio 1.2 (1.1-1.8); Alkaline Phosphatase 40 U/L (38-126); Anion Gap 8.1 mEq/L (5-15); Aspartate Amino Transferase 84 U/L (14-36); Bilirubin,Total 0.3 mg/dl (0.2-1.3); Blood Urea Nitrogen 23 mg/dl (7-17); Calcium 7.9 mg/dl (8.4-10.2); Carbon Dioxide 24 mmol/L (22.0-30.0); Creatinine Clearance Estimated 49 mL/min (50-200); Estimated Glomerular Filt Rate 82 ml/min (>60); GFR (African American) 99 ML/MIN (>60); Globulin 2.4 g/dL (1.3-3.2); Glucose 92 mg/dl (74-100); Total Protein,Serum 5.3 g/dl (6.3-8.2)
--- NOTE | 2024-08-03 07:38 | P.DS_ITS ---
General Admission date:: 07/30/24 Discharge date: 08/03/24 HPI HPI HPI: Cielo Quarles is a 74-year-old female with a medical history significant for alcohol use disorder, GI bleed who presented with worsening abdominal pain, nausea, and dark emesis. Upon my arrival to interview the patient, patient was having significant abdominal pain and unable to perform an appropriate injury. Per my signout from ED attending and chart review, patient had been binge drinking fireball shots over the past couple days. She was recently admitted to [facility] and an EGD apparently showed stomach ulcers per p atient, but she does not know if it revealed esophageal varices. Patient has no known history of cirrhosis, but but does have a longstanding history of alcohol use disorder. Workup in the ED was remarkable for hemoglobin 8.5, BUN 50, relatively normal LFTs, and positive stool occult for blood. CT abdomen/pelvis revealed an indeterminate hyperenhancing focus along the greater curvature of the stomach which may represent ingested material versus hemorrhagic source. Vitals were stable prior to admission, with patient no longer having nausea/vomiting or hematemesis/melena. As such, case discussed with ED provider and decision was made to admit patient for GI bleed. Hospital Course Hospital Course Hospital Course: Cielo Quarles is a 74-year-old female with a medical history significant for alcohol use disorder, GI bleed who presented with worsening abdominal pain, nausea, and dark emesis. Upon my arrival to interview the patient, patient was having significant abdominal pain and unable to perform an appropriate injury. Per my signout from ED attending and chart review, patient had been binge drinking fireball shots over the past couple days. She was recently admitted to [facility] and an EGD apparently showed stomach ulcers per patient, but she does not know if it revealed esophageal varices. Patient has no known history of cirrhosis, but but does have a longstanding history of alcohol use disorder. Workup in the ED was remarkable for hemoglobin 8.5, BUN 50, relatively normal LFTs, and positive stool occult for blood. CT abdomen/pelvis revealed an indeterminate hyperenhancing focus along the greater curvature of the stomach which may represent ingested material versus hemorrhagic source. Vitals were stable prior to admission, with patient no longer having nausea/vomiting or hematemesis/melena. As such, case discussed with ED provider and decision was made to admit patient for GI bleed. Had drop in her hemoglobin necessitating transfusion. Patient unstable and first night of admission. Taken for EGD with Mike's lesions identified. No active bleeding. Continue to necessitate monitoring for alcohol withdrawal as well as treatment of her anemia and GI symptoms. Showed gradual improvement. Evaluated by therapy, would benefit from home health. Stable to discharge home with home health. Counseled on need to stop drinking. Patient stated understanding. Problems addressed as follows: #Mike's ulceration, erosions #Upper GI bleed, resolved #Lower GI bleed, resolved Blood loss anemia ? EGD about 2 weeks ago at [facility] revealed PUD, gastritis, and portal hypertension. Patient had been binge drinking fireball shots, and coughing quite significantly prior to admission. Hemoglobin 6.3 at admission. Status post transfusion of 2 units. Hemoglobin stabilized in the low 8 range. Was taken for EGD on 07/31/2024 with identification of large hiatal hernia, linear Mike's ulcerations, distal esophageal ring s/p dilation, moderate to marked esophageal dysmotility, mild antral reactive gastropathy. It is unclear if significant coughing prior to admission exacerbated Mike's ulcerations causing blood loss but it is very possible. See COPD exacerbation below. Will continue pantoprazole 40 mg nightly with sucralfate ACHS. No further transfusion needed during admission. Tolerating p.o. intake. Follow-up with GI as an outpatient for further management. Hypokalemia: Dropped to 2.8 during admission. Replaced orally with good response. Normal at 4.1 on day of discharge. #Acute COPD exacerbation ? Patient has had increased cough recently, and exam reveals diminished air movement with wheezing and significant nonproductive coughing. Initiated on Atrovent, Xopenex scheduled every 4 hours and as needed; Pulmicort twice daily, prednisone for 5 days. Transitioned antibiotics to levofloxacin to complete 7- day course of antibiotics. Will complete 5 days total of steroids. Antibiotics in conjunction for COPD exacerbation as well as UTI as below. Continue Trelegy inhaler. UTI: Urine growing Klebsiella. Sensitive to Levaquin. Initiate 750 mg daily to complete 7 days total of antibiotics. #Alcohol use disorder #Alcohol withdrawal Cirrhosis ?Monitored on CIWA protocol from admission. Necessitating Ativan per protocol. Showed gradual improvement in mentation. On day of discharge, back to baseline mentation. Alert and oriented. There was concern that patient may have had seizure on day of arrival as she appeared postictal and was frankly altered. Counseled on need to stop drinking as she is developing severe life-threatening symptoms secondary to her alcohol abuse. Patient declined services. Daughter involved. -Per review of ultrasound of abdomen, patient has cirrhosis. Will need follow- up with hepatology as an outpatient. #Hypothyroidism ? Resumed home levothyroxine 125 mcg. TSH not obtained given patient's recent critical state which can skew TSH. Recommend outpatient follow-up with TSH. Total time spent on discharge 45 minutes in counseling, documentation, chart review, and direct care with patient. Exam Data for Last 24 hours Vital signs and Labs for Last 24 Hours: Temp Pulse Resp BP Pulse Ox O2 Del Method O2 Flow Rate 98.1 F 95 H 16 109/67 L 90 L Room Air 3 08/03/24 04:00 08/03/24 06:14 08/03/24 04:00 08/03/24 04:00 08/03/24 06:14 08/03/24 06:30 08/03/24 04:00 Laboratory Results - last 24 hr 07/30/24 11:41: Crossmatch (AHG) See Detail 08/02/24 14:00: Magnesium 1.5 L 08/02/24 14:36: Hgb 8.8 L D, Hct 26.5 L, Sodium 142, Potassium 3.7 D, Chloride 110 H, Carbon Dioxide 26, Anion Gap 9.7, BUN 25 H, Creatinine 0.90 D, Estimated Creat Clear 49, Estimated GFR 61, Est GFR ( Amer) 74 D, Glucose 163 H D, Calcium 8.3 L 08/03/24 05:45: Sodium 136, Potassium 4.1, Chloride 108 H, Carbon Dioxide 24, Anion Gap 8.1, BUN 23 H, Creatinine 0.70 D, Estimated Creat Clear 49, Estimated GFR 82, Est GFR ( Amer) 99 D, Glucose 92 D, Calcium 7.9 L, Total Bilirubin 0.3, AST 84 H D, ALT 47 D, Alkaline Phosphatase 40, Total Protein 5.3 L, Albumin 2.9 L D, Globulin 2.4, Albumin/Globulin Ratio 1.2 I & O for Last 24 hours: Intake & Output 07/31/24 08/01/24 08/02/24 08/03/24 23:59 23:59 23:59 23:59 Intake Total 286 / 386 790 / 1280 2250 / 2250 Output Total 0 / 0 Balance 285 / 385 790 / 1280 2249 / 2249 - Weight 63.616 kg 65.045 kg 63.4 kg 62.777 kg Microbiology Reports for the Last 24 Hours: Microbiology 07/30/24 10:47 Blood Blood Culture - Preliminary NO GROWTH AFTER 48 HOURS 07/30/24 11:06 Urine,Clean Catch Urine Culture - Final Klebsiella pneumoniae Constitutional Constitutional: no acute distress, obese, chronically ill appearing and cooperative *Routine HEENT Exam Head: Present normocephalic Eye: Present EOMI and PERRL ENT: Present mucous membranes moist *Routine Neck Exam Neck: Present supple; Absent lymphadenopathy *Routine Respiratory Exam Respiratory: Present rhonchi, wheezes and normal respiratory effort; Absent CTA bilaterally or crackles *Routine Cardiovascular Exam Cardiovascular: Present RRR *Routine Abdominal Exam Abdominal: Present soft, normoactive bowel sounds and tenderness (mild non- focal) *Routine Rectal Exam Patient deferred: visual exam *Routine Exam Patient deferred: external exam *Routine Extremities Exam Extremities: Absent cyanosis, clubbing or edema *Routine Skin Exam Skin: Present intact and warm; Absent rash *Routine Neurological Exam Neurological: Present alert, oriented X3 and moving all extremities; Absent altered mental status Results Data Completed and Pending Labs on day of discharge: Labs from last 24 hours 08/03/24 08/02/24 08/02/24 05:45 14:36 14:00 Hgb 8.8 L D Hct 26.5 L Sodium 136 142 Potassium 4.1 3.7 D Chloride 108 H 110 H Carbon Dioxide 24 26 Anion Gap 8.1 9.7 BUN 23 H 25 H Creatinine 0.70 D 0.90 D Estimated Creat Clear 49 49 Estimated GFR 82 61 Est GFR ( Amer) 99 D 74 D Glucose 92 D 163 H D Calcium 7.9 L 8.3 L Magnesium 1.5 L Total Bilirubin 0.3 AST 84 H D ALT 47 D Alkaline Phosphatase 40 Total Protein 5.3 L Albumin 2.9 L D Globulin 2.4 Albumin/Globulin Ratio 1.2 Crossmatch ([facility]G) 07/30/24 11:41 Hgb Hct Sodium Potassium Chloride Carbon Dioxide Anion Gap BUN Creatinine Estimated Creat Clear Estimated GFR Est GFR ( Amer) Glucose Calcium Magnesium Total Bilirubin AST ALT Alkaline Phosphatase Total Protein Albumin Globulin Albumin/Globulin Ratio Crossmatch ([facility]) See Detail Preliminary micro results at discharge 07/30/24 10:47 Blood Culture - Preliminary Blood NO GROWTH AFTER 48 HOURS DS: Diagnosis Discharge Diagnosis (1) Acute GI bleeding: Status: Acute Code(s): K92.2 - Gastrointestinal hemorrhage, unspecified (2) UTI due to Klebsiella species: Status: Acute Code(s): N39.0 - Urinary tract infection, site not specified; B96.89 - Other specified bacterial agents as the cause of diseases classified elsewhere (3) Acute on chronic anemia: Status: Acute Code(s): D64.9 - Anemia, unspecified (4) Alcohol use disorder: Status: Acute Code(s): F10.90 - Alcohol use, unspecified, uncomplicated (5) COPD exacerbation: Status: Acute Code(s): J44.1 - Chronic obstructive pulmonary disease with (acute) exacerbation (6) Cirrhosis with alcoholism: Status: Acute Code(s): K70.30 - Alcoholic cirrhosis of liver without ascites (7) Macrocytic anemia: Status: Acute Code(s): D53.9 - Nutritional anemia, unspecified (8) Acute alcoholic gastritis: Status: Acute Code(s): K29.20 - Alcoholic gastritis without bleeding Meds Home Medications and Allergies Home Medications ?Medication ?Instructions ?Recorded ?Confirmed ?Type atorvastatin 20 mg tablet 20 mg PO DAILY 07/31/24 07/31/24 History levothyroxine 125 mcg tablet 125 mcg PO DAILY 07/31/24 07/31/24 History acetaminophen 325 mg tablet 650 mg (2 x 325 mg) PO Q6H PRN 08/03/24 Rx Fever Or Mild Pain (1-3) #0 tabs bumetanide 1 mg tablet 0.5 mg (1/2 x 1 mg) PO DAILY 30 08/03/24 Rx days #15 tabs fluticasone fur. 100 mcg-umeclid 1 inh inhalation DAILY 30 days #60 08/03/24 Rx 62.5 mcg-vilant 25 mcg ea inhalat.powder (Trelegy Ellipta) levofloxacin 750 mg tablet 750 mg PO Q24H 4 days #4 tabs 08/03/24 Rx pantoprazole 40 mg tablet,delayed 40 mg PO HS 30 days #30 tabs 08/03/24 Rx release prednisone 20 mg tablet 40 mg (2 x 20 mg) PO DAILY 2 days 08/03/24 Rx #4 tabs sucralfate 1 gram tablet 1 g PO ACHS 10 days #40 tabs 08/03/24 Rx New Prescriptions to Start Prescriptions: bumetanide Shantelle,Aries [id number] [Trelegy Ellipta] Shantelle,Aries levofloxacin Shantelle,Aries pantoprazole Shantelle,Aries prednisone Shantelle,Aries sucralfate Shantelle,Aries Allergies Allergy/AdvReac Type Severity Reaction Status Date / Time diphenhydramine Allergy Mild Agitated Verified 07/30/24 10:49 [From BENADRYL] valacyclovir [From Valtrex] Allergy Rash Verified 07/30/24 10:49 Discharge Plan Disposition Patient Disposition: Home Health Service Condition: Fair Discharge Order Discharge Orders: Discharge Order (Routine); Ordered 08/03/24 Ordered By: Aries Pepper Follow up Plan Follow up with: Soren Luevano II, MD [Staff Physician] - 08/09/24 8:30 am ProviderAlyssa MD [Primary Care Provider] - Enter time for follow up Prescriptions/Medication Reconciliation: New bumetanide 1 mg Tablet 0.5 mg PO DAILY 30 Days Qty: 15 0RF Trelegy Ellipta 100-62.5-25 mcg Blister With Device 1 inh inhalation DAILY 30 Days Qty: 60 0RF acetaminophen 325 mg Tablet 650 mg PO Q6H PRN (Reason: Fever Or Mild Pain (1-3)) Qty: 0 0RF sucralfate 1 gram Tablet 1 g PO ACHS 10 Days Qty: 40 0RF prednisone 20 mg Tablet 40 mg PO DAILY 2 Days Qty: 4 0RF pantoprazole 40 mg Tablet,Delayed Release (Dr/Ec) 40 mg PO HS 30 Days Qty: 30 0RF levofloxacin 750 mg tablet 750 mg PO Q24H 4 Days Qty: 4 0RF Continued atorvastatin 20 mg tablet 20 mg PO DAILY Patient Comments: TAKE 1 TABLET BY MOUTH EVERY NIGHT FOR CHOLESTEROL. levothyroxine 125 mcg tablet 125 mcg PO DAILY Patient Comments: TAKE 1 TABLET BY MOUTH DAILY. Discontinued celecoxib 100 mg capsule 100 mg PO BID Patient Comments: TAKE 1 CAPSULE BY MOUTH 2 TIMES DAILY. Problem Reconciliation Problems Reviewed?: Yes Patient Discharge Instructions ACTIVITY: Continue current activity DIET: continue same diet Patient Instructions: Gastrointestinal Bleeding, DI for Alcoholic Gastritis Print Language: Korean Providers Primary Care Provider: Provider,Referral Admit Provider: Hesham Haro Attending Provider: Hesham Haro
[2024-08-03 08:00] VITALS: BP 119/64; PULSE 111; RESP 19; TEMP 36.6; O2SAT 95
[2024-08-03 08:13] LABS: Basophils % 0.4 % (0.1-2.0); Eosinophils # 0.1 K/mm3 (0.0-0.4); Hemoglobin 8.1 g/dL (12.2-16.2); Lymphocytes # 2.5 K/mm3 (0.7-4.5); Lymphocytes % 32.1 % (10-50); Mean Corpuscular HGB Conc 35.4 g/dL (31.8-35.4); Mean Corpuscular Hemoglobin 33.9 pg (27.0-31.2); Mean Corpuscular Volume 95.9 fl (81-99); Mean Platelet Volume 8.7 fl (7.4-10.4); Monocytes # 0.5 K/mm3 (0.1-1.0); Neutrophils # 4.7 K/mm3 (1.8-7.8); Neutrophils % 60.5 % (37.0-80.0); Platelet Count 188 K/mm3 (142-424); Red Cell Distribution Width 19.3 % (11.5-17.5); White Blood Count 7.7 K/mm3 (4.8-10.8)
[2024-08-03] MEDS: predniSONE 20MG TAB 40 MG PO (08:36)
[2024-08-03] MEDS: BUMETANIDE 1 MG TABLET PO (08:36)
[2024-08-03] MEDS: FOLIC ACID 1MG TABLET 1 MG PO (08:36)
[2024-08-03] MEDS: LEVOFLOXACIN/D5W 750 MG/150 ML 750 MG/150 ML PIGGYBACK 100 MG IV (08:37)
[2024-08-03] MEDS: FLUTICASONE/UMECLIDIN/VILANTER 100/62.5/25MCG INHALER 1 PUFF IH (08:39)
[2024-08-03] MEDS: BENZONATATE 100MG CAPSULE 200 MG PO (08:50)
[2024-08-03 11:03] VITALS: PULSE 109; PULSE 111; O2SAT 93
--- NOTE | 2024-08-03 11:59 | PC.NURSE ---
CM called to make sure pt will have a follow up with her pcp. PCP contacted and to call the patient and make an appointment for her. Number called [phone] to speak with primary's office.
[2024-08-03 12:13] LABS: HCV Ab Reactive (Non Reactive)
--- NOTE | 2024-08-04 13:39 | SW/DCPLANNER ---
Hospital follow up phone call: not a working number.
== END 2024-08-03 12:01 | disposition home health service (06) | DRG 378 ==
LOC: ER 11:19 → 2ND 13:45
PROVIDERS: Internal Medicine Adolescent Medicine; Internal Medicine Gastroenterology; Admitting Provider Student in an Organized Health Care Education/Training Program; Emergency Provider Emergency Medicine; Visit Provider Student in an Organized Health Care Education/Training Program
PROC: 0DJ08ZZ Inspection of Upper Intestinal Tract, Via Natural or Artificial Opening Endoscopic (ICD-10-PCS; CPT 43235; principal; 2024-07-31 07:55)
DX: K25.4 Chronic or unspecified gastric ulcer with hemorrhage (principal); F10.239 Alcohol dependence with withdrawal, unspecified; J44.1 Chronic obstructive pulmonary disease with (acute) exacerbation; N39.0 Urinary tract infection, site not specified; B96.1 Klebsiella pneumoniae [K. pneumoniae] as the cause of diseases classified elsewhere; E03.9 Hypothyroidism, unspecified; K70.30 Alcoholic cirrhosis of liver without ascites; F17.210 Nicotine dependence, cigarettes, uncomplicated; K29.21 Alcoholic gastritis with bleeding; D53.9 Nutritional anemia, unspecified; K22.2 Esophageal obstruction
CPT/HCPCS: 36415; 70450; 71045; 71275; 74174; 76705; 80048; 80053; 80320; 81001; 82272; 82962; 83605; 83690; 83735; 84484; 85007; 85014; 85018; 85025; 85027; 85610; 85730; 86803; 86850; 87040; 87086; 87088; 87186; 87389; 88305; 93005; 93306; 94640; 97116; 97163; 97166; 97530; 97535; 99221; 99291; C1726; G0328; G0480; J0131; J0456; J0696; J1940; J1956; J2060; J2354; J2405; J2919; J3475; J7050; J7120; J7614; J7644; P9016; Q9967